=== PATIENT | female | born 1945 | race African-American/Black ===

== ENCOUNTER 2016-08-29 15:49 | Emergency (ER) | payer MEDICARE ==
[~2016-08-29] VITALS: Ht 152.4 cm; Wt 100.0 kg
[~2016-08-29 15:49] MED LIST: ACYCLOVIR400 MG PO; ASPIRIN ADULT L81 MG PO; ATENOLOL50 MG PO; AVAPRO150 MG PO; CARAFATE1 GM PO; CELEBREX100 MG PO; CELEBREX200 MG OR; CEPHALEXIN500 MG PO; CIPROFLOXACN500 MG PO; CLOPIDOGREL75 MG PO; FAMOTIDINE20 M1 PO; FOLIC ACID1 MG PO; GABAPENTIN300 MG PO; HYDROCO/APAP1 T10 PO; HYDROCO/APAP1 TA9; HYDROCO/APAP1 TA9 PO; IMURAN50 MG PO; LIPITOR40 M1 PO; LOPRESSOR 550 MG/TAB PO; LORTAB 10 PO; LORTAB 10-325 M1 TAB PO; LORTAB 1010 MG PO; LORTAB 5 OR; LOSARTAN POT25 MG PO; LOVENOX 3030 MG/0.3 SC; MEDDOSEPAK PO; NITROQUICK0.4 MG SL; NITROSTAT0.4 MG SL; NORCO1 TAB PO; OXYBUTYNIN5 M1 PO; PANTOPRAZOLE SO40 MG PO; PRILOSEC20 MG OR; PRILOSEC20 MG/CAP PO; PROTONIX20 MG PO; RHEUMATREX2.5 M1 PO; TEMAZEPAM15 MG PO; TRAZODONE100 MG OR; TRAZODONE50 MG PO
[2016-08-29 16:19] LABS: HEMATOCRIT 42.9 % (37.0-47.0); HEMOGLOBIN 13.8 g/dl (12.0-16.0); IMMATURE GRANULOCYTES 0.3 % (0.0-1.0); MEAN CELL VOLUME 90.5 fL CALC (80.0-100.0); MEAN CORPUSCULAR HGB 29.1 pG CALC (26.0-32.0); MEAN CORPUSCULAR HGB CONC 32.2 g/L CALC (32.0-36.0); NEUT# 4.33 thou/uL (2.00-7.15); RED BLOOD COUNT 4.74 mill/uL (4.20-5.60); RED CELL DISTRI WIDTH 14.1 % (11.5-15.5)
[2016-08-29 16:20] LABS: URINE BILIRUBIN - DIPSTICK NEGATIVE (NEGATIVE); URINE BLOOD DIPSTICK NEGATIVE (NEGATIVE); URINE CLARITY CLOUDY; URINE COLOR YELLOW; URINE GLUCOSE - DIPSTICK NEGATIVE (NEGATIVE); URINE KETONE NEGATIVE (NEGATIVE); URINE PROTEIN - DIPSTICK NEGATIVE (NEG-TRACE); URINE SPECIFIC GRAVITY 1.015; URINE UROBILINOGEN - DIPSTICK 0.2 E.U./dL (0.2)
[2016-08-29 16:21] LABS: URINE NITRITE - DIPSTICK POSITIVE (Negative)
[2016-08-29 16:22] LABS: URINE LEUK ESTERASE MODERATE (NEGATIVE)
[2016-08-29 16:26] LABS: URINE BACTERIA MANY hpf; URINE RBC 0-2 RBC/hpf (0-5); URINE SQUAMOUS EPITHELIAL CELL MODERATE EPI/hpf (0-FEW); URINE WBC 20-50 WBC/hpf (0-5)
[2016-08-29 16:32] LABS: ALBUMIN 4.6 g/dL (3.2-5.0); ALKALINE PHOSPHATASE 68 u/l (38-126); AMYLASE 112 u/l (30-110); ANION GAP 17 (6-22 (CALC)); BILIRUBIN, TOTAL 0.9 mg/dL (0.0-1.4); BUN 22 mg/dL (8-23); BUN/CREATININE RATIO 13 (12-20 (CALC)); CALCIUM 9.9 mg/dL (8.4-10.2); CARBON DIOXIDE 26 mmol/l (22-30); CHLORIDE 103 mmol/l (95-108); CREATININE 1.7 mg/dL (0.5-1.0); GFR 30 ML/MIN (>=60 (CALC)); GFR FOR AFR.AMER. 36 ML/MIN (>=60 (CALC)); GLUCOSE 129 mg/dL (82-115); LIPASE 183 u/l (23-300); POTASSIUM 4.3 mmol/l (3.5-5.1); SGOT/AST 35 u/l (9-36); SGPT/ALT 23 u/l (11-66); SODIUM 142 mmol/l (137-146); TOTAL PROTEIN 8.6 g/dL (6.3-8.2)
[2016-08-29 16:46] LABS: MYOGLOBIN 123 ng/mL (0 - 62)
[2016-08-29] MEDS ORDERED: ZOFRAN ODT4 MG PO (17:22)
[2016-08-29] MEDS ORDERED: BACTRIM DS1 TAB PO (17:22)
[2016-08-29] MEDS ORDERED: COLACE100 MG PO (17:22)
[2016-08-29] MEDS ORDERED: TRAMADOL HYDROC50 MG PO (17:22)
[2016-08-29 18:26] VITALS: BP 148/67
[2016-09-21] MEDS ORDERED: [UNRECOGNIZED DRUG - CODE] (11:52)
[2016-09-21] MEDS ORDERED: HYDROXYZINE HCL25 M1 PO (11:52)
[2016-09-21] MEDS ORDERED: ARAVA10 MG PO (11:52)
[2016-09-21] MEDS ORDERED: PAROXETINE20 MG PO (11:52)
[2016-09-21] MEDS ORDERED: ACYCLOVIR400 MG PO (11:52)
[2016-09-21] MEDS ORDERED: HYDROXYCHLOR200 MG PO (11:53)
[2016-09-21] MEDS ORDERED: DIOVAN80 MG PO (11:53)
[2016-09-21] MEDS ORDERED: IMURAN50 MG PO (11:53)
[2016-09-21] MEDS ORDERED: PLAVIX75 MG PO (11:54)
[2016-09-21] MEDS ORDERED: CETIRIZINE10 MG PO (11:54)
[2016-09-21] MEDS ORDERED: RHEUMATREX2.5 M1 PO (11:54)
[2016-09-21] MEDS ORDERED: ATENOLOL50 MG PO (11:55)
== END 2016-08-29 19:31 | disposition home or self-care (01) ==
LOC: ED 15:49
PROVIDERS: Emergency Medicine
DX: N10 Acute pyelonephritis (principal); R10.9 Unspecified abdominal pain; R10.13 Epigastric pain; B96.20 Unspecified Escherichia coli [E. coli] as the cause of diseases classified elsewhere; I10 Essential (primary) hypertension; R11.0 Nausea

== ENCOUNTER 2016-10-05 07:19 | Day surgery (SDC) | payer MEDICARE ==
[~2016-10-05 07:19] MED LIST changes: +ARAVA10 MG PO; +BACTRIM DS1 TAB PO; +CETIRIZINE10 MG PO; +COLACE100 MG PO; +DIOVAN80 MG PO; +HYDROXYCHLOR200 MG PO; +HYDROXYZINE HCL25 M1 PO; +PAROXETINE20 MG PO; +PLAVIX75 MG PO; +TRAMADOL HYDROC50 MG PO; +ZOFRAN ODT4 MG PO; +[UNRECOGNIZED DRUG - CODE]
[2016-10-05 10:59] VITALS: BP 116/59
== END 2016-10-05 10:50 | disposition home or self-care (01) ==
LOC: ENDO 07:19 → ORM 08:45 → ENDO 10:50
PROVIDERS: ATTEND Surgery
PROC: 0DB48ZX Excision of Esophagogastric Junction, Via Natural or Artificial Opening Endoscopic, Diagnostic (ICD-10-PCS; principal; 2016-10-05)
PROC: 0DB78ZX Excision of Stomach, Pylorus, Via Natural or Artificial Opening Endoscopic, Diagnostic (ICD-10-PCS; 2016-10-05)
DX: R13.10 Dysphagia, unspecified (principal); K21.9 Gastro-esophageal reflux disease without esophagitis; K44.9 Diaphragmatic hernia without obstruction or gangrene; K20.9 Esophagitis, unspecified; K29.50 Unspecified chronic gastritis without bleeding; R10.13 Epigastric pain; I48.91 Unspecified atrial fibrillation; I12.9 Hypertensive chronic kidney disease with stage 1 through stage 4 chronic kidney disease, or unspecified chronic kidney disease; N18.9 Chronic kidney disease, unspecified; Z85.51 Personal history of malignant neoplasm of bladder; Z85.528 Personal history of other malignant neoplasm of kidney

== ENCOUNTER 2016-11-08 13:36 | Emergency (ER) | payer MEDICARE ==
[~2016-11-08] VITALS: Ht 152.4 cm; Wt 100.0 kg
[2016-11-08] MEDS ORDERED: AMOXICILLIN500 M2 PO (15:22)
[2016-11-08 15:26] VITALS: BP 115/61
[2016-11-08] MEDS ORDERED: MUCINEX600 MG PO (15:33)
== END 2016-11-08 15:39 | disposition home or self-care (01) ==
LOC: ED 13:36
DX: J44.0 Chronic obstructive pulmonary disease with (acute) lower respiratory infection (principal); J20.9 Acute bronchitis, unspecified; I10 Essential (primary) hypertension; F32.9 Major depressive disorder, single episode, unspecified; Z86.73 Personal history of transient ischemic attack (TIA), and cerebral infarction without residual deficits; Z85.51 Personal history of malignant neoplasm of bladder

== ENCOUNTER 2016-11-23 11:17 | Emergency (ER) | payer OTHER, MEDICARE ==
[~2016-11-23] VITALS: Ht 152.4 cm; Wt 84.0 kg
[~2016-11-23 11:17] MED LIST changes: +AMOXICILLIN500 M2 PO; +MUCINEX600 MG PO
[2016-11-23] MEDS ORDERED: FLEXERIL PO (11:46)
[2016-11-23] MEDS ORDERED: LORTAB 5-325 MG1 TAB PO (11:46)
[2016-11-23] MEDS ORDERED: EC-NAPROSYN500 MG PO (11:46)
[2016-11-23 13:01] VITALS: BP 152/86
== END 2016-11-23 13:02 | disposition home or self-care (01) | DRG 552 ==
LOC: ED 11:17
DX: S16.1XXA Strain of muscle, fascia and tendon at neck level, initial encounter (principal); V43.62XA Car passenger injured in collision with other type car in traffic accident, initial encounter; Y92.413 State road as the place of occurrence of the external cause

== ENCOUNTER 2017-06-02 06:01 | Day surgery (SDC) | payer MEDICARE ==
[~2017-06-02] VITALS: Ht 160 cm; Wt 104.3 kg
[~2017-06-02 06:01] MED LIST changes: +EC-NAPROSYN500 MG PO; +FLEXERIL PO; +LORTAB 5-325 MG1 TAB PO; +SUPER B COMP PO
[2017-06-02 08:03] VITALS: BP 140/78
== END 2017-06-02 08:50 | disposition home or self-care (01) ==
LOC: ORM 06:01
PROVIDERS: ATTEND Anesthesiology Pain Medicine
PROC: 3E0T3BZ Introduction of Anesthetic Agent into Peripheral Nerves and Plexi, Percutaneous Approach (ICD-10-PCS; principal; 2017-06-02)
PROC: 3E0T33Z Introduction of Anti-inflammatory into Peripheral Nerves and Plexi, Percutaneous Approach (ICD-10-PCS; 2017-06-02)
PROC: BR161ZZ Fluoroscopy of Lumbar Facet Joint(s) using Low Osmolar Contrast (ICD-10-PCS; 2017-06-02)
PROC: 3E0T33Z Introduction of Anti-inflammatory into Peripheral Nerves and Plexi, Percutaneous Approach (ICD-10-PCS; 2017-06-02)
PROC: 3E0T3BZ Introduction of Anesthetic Agent into Peripheral Nerves and Plexi, Percutaneous Approach (ICD-10-PCS; 2017-06-02)
PROC: 3E0T33Z Introduction of Anti-inflammatory into Peripheral Nerves and Plexi, Percutaneous Approach (ICD-10-PCS; 2017-06-02)
PROC: 3E0T3BZ Introduction of Anesthetic Agent into Peripheral Nerves and Plexi, Percutaneous Approach (ICD-10-PCS; 2017-06-02)
PROC: 3E0T33Z Introduction of Anti-inflammatory into Peripheral Nerves and Plexi, Percutaneous Approach (ICD-10-PCS; 2017-06-02)
PROC: 3E0T3BZ Introduction of Anesthetic Agent into Peripheral Nerves and Plexi, Percutaneous Approach (ICD-10-PCS; 2017-06-02)
DX: M54.5 Low back pain (principal); M12.9 Arthropathy, unspecified; M46.1 Sacroiliitis, not elsewhere classified

== ENCOUNTER 2017-06-16 08:18 | Day surgery (SDC) | payer MEDICARE ==
[~2017-06-16] VITALS: Ht 160 cm; Wt 103.0 kg
[2017-06-16 10:11] VITALS: BP 130/61
== END 2017-06-16 10:45 | disposition home or self-care (01) ==
LOC: ORM 08:18
PROVIDERS: ATTEND Anesthesiology Pain Medicine
PROC: 3E0T33Z Introduction of Anti-inflammatory into Peripheral Nerves and Plexi, Percutaneous Approach (ICD-10-PCS; principal; 2017-06-16)
PROC: 3E0T3BZ Introduction of Anesthetic Agent into Peripheral Nerves and Plexi, Percutaneous Approach (ICD-10-PCS; 2017-06-16)
PROC: BR161ZZ Fluoroscopy of Lumbar Facet Joint(s) using Low Osmolar Contrast (ICD-10-PCS; 2017-06-16)
PROC: 3E0T33Z Introduction of Anti-inflammatory into Peripheral Nerves and Plexi, Percutaneous Approach (ICD-10-PCS; 2017-06-16)
PROC: 3E0T3BZ Introduction of Anesthetic Agent into Peripheral Nerves and Plexi, Percutaneous Approach (ICD-10-PCS; 2017-06-16)
PROC: 3E0T33Z Introduction of Anti-inflammatory into Peripheral Nerves and Plexi, Percutaneous Approach (ICD-10-PCS; 2017-06-16)
PROC: 3E0T3BZ Introduction of Anesthetic Agent into Peripheral Nerves and Plexi, Percutaneous Approach (ICD-10-PCS; 2017-06-16)
DX: M54.5 Low back pain (principal); M12.9 Arthropathy, unspecified; M46.1 Sacroiliitis, not elsewhere classified

== ENCOUNTER 2017-08-11 06:50 | Day surgery (SDC) | payer MEDICARE ==
[~2017-08-11] VITALS: Ht 160 cm; Wt 101.6 kg
[2017-08-11 08:46] VITALS: BP 161/75
== END 2017-08-11 09:25 | disposition home or self-care (01) ==
LOC: ORM 06:50
PROVIDERS: ATTEND Anesthesiology Pain Medicine
PROC: 3E0U33Z Introduction of Anti-inflammatory into Joints, Percutaneous Approach (ICD-10-PCS; principal; 2017-08-11)
PROC: 3E0U3BZ Introduction of Anesthetic Agent into Joints, Percutaneous Approach (ICD-10-PCS; 2017-08-11)
DX: M25.551 Pain in right hip (principal); M76.31 Iliotibial band syndrome, right leg

== ENCOUNTER 2017-10-27 08:54 | Day surgery (SDC) | payer MEDICARE ==
[~2017-10-27] VITALS: Ht 160 cm; Wt 103.0 kg
[~2017-10-27 08:54] MED LIST changes: +NORCO1 TA2 PO; +TYLENOL500 MG PO
[2017-10-27 10:36] VITALS: BP 130/71
[2017-10-27] MEDS ORDERED: NORCO1 TA2 PO ×2 (10:46)
== END 2017-10-27 10:55 | disposition home or self-care (01) ==
LOC: ORM 08:54
PROVIDERS: ATTEND Anesthesiology Pain Medicine
PROC: 3E0T3TZ Introduction of Destructive Agent into Peripheral Nerves and Plexi, Percutaneous Approach (ICD-10-PCS; principal; 2017-10-27)
PROC: BR161ZZ Fluoroscopy of Lumbar Facet Joint(s) using Low Osmolar Contrast (ICD-10-PCS; 2017-10-27)
DX: M54.5 Low back pain (principal)

== ENCOUNTER 2018-01-05 19:45 | Emergency (ER) | payer MEDICARE ==
[~2018-01-05] VITALS: Ht 160 cm; Wt 113.0 kg
[~2018-01-05 19:45] MED LIST changes: +HYDROCODONE/ACE1 TAB PO
[2018-01-05] MEDS ORDERED: PERCOCET 10/31 COMBO PO (21:56)
[2018-01-05 22:38] VITALS: BP 126/68
== END 2018-01-05 22:30 | disposition home or self-care (01) ==
LOC: ED 19:45
DX: M25.551 Pain in right hip (principal); M54.9 Dorsalgia, unspecified; G89.29 Other chronic pain; I10 Essential (primary) hypertension; M19.90 Unspecified osteoarthritis, unspecified site; Z96.641 Presence of right artificial hip joint

== ENCOUNTER 2018-01-30 17:11 | Emergency (ER) | payer MEDICARE ==
[~2018-01-30] VITALS: Ht 160 cm; Wt 109.1 kg
[~2018-01-30 17:11] MED LIST changes: +PERCOCET 10/31 COMBO PO
[2018-01-30 17:41] LABS: URINE BILIRUBIN - DIPSTICK NEGATIVE (NEGATIVE); URINE BLOOD DIPSTICK MODERATE (NEGATIVE); URINE COLOR YELLOW; URINE GLUCOSE - DIPSTICK NEGATIVE (NEGATIVE); URINE KETONE NEGATIVE (NEGATIVE); URINE LEUK ESTERASE NEGATIVE (NEGATIVE); URINE NITRITE - DIPSTICK NEGATIVE (Negative); URINE PH 6.5 (4.5-8.0); URINE PROTEIN - DIPSTICK NEGATIVE (NEG-TRACE); URINE UROBILINOGEN - DIPSTICK 0.2 E.U./dL (0.2)
[2018-01-30 17:42] LABS: HEMATOCRIT 37.5 % (37.0-47.0); IMMATURE GRANULOCYTES 0.2 % (0.0-5.0); MEAN CELL VOLUME 92.1 fL CALC (80.0-100.0); MEAN CORPUSCULAR HGB 29.5 pG CALC (26.0-32.0); NEUT# 4.34 thou/uL (2.00-7.15); RED BLOOD COUNT 4.07 mill/uL (4.20-5.60); RED CELL DISTRI WIDTH 13.7 % (11.5-15.5)
[2018-01-30 18:18] LABS: ALBUMIN 3.7 g/dL (3.2-5.0); ALKALINE PHOSPHATASE 59 u/l (38-126); ANION GAP 11 (6-22 (CALC)); BILIRUBIN, TOTAL 0.4 mg/dL (0.0-1.4); BUN 20 mg/dL (8-23); BUN/CREATININE RATIO 13 (12-20 (CALC)); CARBON DIOXIDE 25 mmol/l (22-30); CHLORIDE 109 mmol/l (95-108); CREATININE 1.6 mg/dL (0.5-1.0); GFR 32 ML/MIN (>=60 (CALC)); GFR FOR AFR.AMER. 38 ML/MIN (>=60 (CALC)); POTASSIUM 4.3 mmol/l (3.5-5.1); SGOT/AST 31 u/l (9-36); SODIUM 141 mmol/l (137-146); TOTAL PROTEIN 6.7 g/dL (6.3-8.2)
[2018-01-30 18:29] LABS: MYOGLOBIN 139 ng/mL (0 - 62)
[2018-01-30 18:41] LABS: BARBITURATES NEGATIVE (NEGATIVE); COCAINE NEGATIVE (NEGATIVE); METHADONE NEGATIVE (NEGATIVE); OXCYCODONE POSITIVE (NEGATIVE); TETRAHYDROCANNABIONOL NEGATIVE (NEGATIVE); TRICYLIC ANTIDEPRESSANTS NEGATIVE (NEGATIVE)
[2018-01-30 18:46] LABS: URINE SQUAMOUS EPITHELIAL CELL FEW EPI/hpf (0-FEW)
[2018-01-30] MEDS ORDERED: LORTAB 1010 MG PO (20:07)
[2018-01-30] MEDS ORDERED: VENTOLIN HFA IN (20:08)
[2018-01-30] MEDS ORDERED: DIOVAN160 MG PO (20:08)
[2018-01-30 21:35] VITALS: BP 134/62
== END 2018-01-30 21:58 | disposition home or self-care (01) ==
LOC: ED 17:11
PROVIDERS: Emergency Medicine
DX: G89.29 Other chronic pain (principal); R52 Pain, unspecified; R41.82 Altered mental status, unspecified; R47.81 Slurred speech

== ENCOUNTER 2018-02-07 15:33 | Emergency (ER) | payer MEDICARE ==
[~2018-02-07] VITALS: Ht 160 cm; Wt 120.0 kg
[~2018-02-07 15:33] MED LIST changes: +DIOVAN160 MG PO; +VENTOLIN HFA IN
[2018-02-07] MEDS ORDERED: MEDDOSEPAK PO (16:08)
[2018-02-07] MEDS ORDERED: DICLOFENAC50 MG PO (16:08)
[2018-02-07 16:55] VITALS: BP 151/72
== END 2018-02-07 16:55 | disposition home or self-care (01) ==
LOC: ED 15:33
DX: G89.29 Other chronic pain (principal); M06.9 Rheumatoid arthritis, unspecified; Z76.0 Encounter for issue of repeat prescription

== ENCOUNTER 2018-02-21 13:44 | Emergency (ER) | payer MEDICARE ==
[~2018-02-21] VITALS: Ht 160 cm; Wt 109.0 kg
[~2018-02-21 13:44] MED LIST changes: +DICLOFENAC50 MG PO; +PERCOCET1 TA4 PO
[2018-02-21 15:27] LABS: URINE BILIRUBIN - DIPSTICK NEGATIVE (NEGATIVE); URINE BLOOD DIPSTICK NEGATIVE (NEGATIVE); URINE COLOR YELLOW; URINE GLUCOSE - DIPSTICK NEGATIVE (NEGATIVE); URINE KETONE TRACE mg/dL (NEGATIVE); URINE LEUK ESTERASE NEGATIVE (NEGATIVE); URINE NITRITE - DIPSTICK NEGATIVE (Negative); URINE PH 7.5 (4.5-8.0); URINE PROTEIN - DIPSTICK NEGATIVE (NEG-TRACE); URINE SPECIFIC GRAVITY 1.015; URINE UROBILINOGEN - DIPSTICK 0.2 E.U./dL (0.2)
[2018-02-21 15:28] LABS: HEMATOCRIT 39.3 % (37.0-47.0); HEMOGLOBIN 12.5 g/dl (12.0-16.0); IMMATURE GRANULOCYTES 0.3 % (0.0-5.0); MEAN CELL VOLUME 91.8 fL CALC (80.0-100.0); MEAN CORPUSCULAR HGB 29.2 pG CALC (26.0-32.0); MEAN CORPUSCULAR HGB CONC 31.8 g/L CALC (32.0-36.0); NEUT# 5.8 thou/uL (2.00-7.15); RED BLOOD COUNT 4.28 mill/uL (4.20-5.60)
[2018-02-21 15:43] LABS: ALBUMIN 4.2 g/dL (3.2-5.0); BILIRUBIN, TOTAL 0.6 mg/dL (0.0-1.4); CREATININE 1.6 mg/dL (0.5-1.0); POTASSIUM 5.6 mmol/l (3.5-5.1); TOTAL PROTEIN 7.5 g/dL (6.3-8.2)
[2018-02-21] MEDS ORDERED: ONDANSETRON4 MG PO (17:25)
[2018-02-21 17:35] LABS: CREATININE 1.6 mg/dL (0.5-1.0); POTASSIUM 4.7 mmol/l (3.5-5.1)
[2018-02-21 17:53] VITALS: BP 153/81
== END 2018-02-21 18:02 | disposition home or self-care (01) ==
LOC: ED 13:44
PROVIDERS: Family Medicine
DX: K52.9 Noninfective gastroenteritis and colitis, unspecified (principal); E87.5 Hyperkalemia; I10 Essential (primary) hypertension; J44.9 Chronic obstructive pulmonary disease, unspecified; M06.9 Rheumatoid arthritis, unspecified; M19.90 Unspecified osteoarthritis, unspecified site

== ENCOUNTER 2018-09-02 12:13 | Emergency (ER) | payer MEDICARE ==
[~2018-09-02] VITALS: Ht 160 cm; Wt 80.0 kg
[~2018-09-02 12:13] MED LIST changes: +IPRATROPIU0.5 MG/3 M IN; +LIPITOR20 M1 PO; +ONDANSETRON4 MG PO; +PAROXETINE10 MG PO; +TELMISARTAN40 MG PO; +TUSSIN DM PO
[2018-09-02 13:38] LABS: URINE BILIRUBIN - DIPSTICK NEGATIVE (NEGATIVE); URINE BLOOD DIPSTICK NEGATIVE (NEGATIVE); URINE COLOR YELLOW; URINE GLUCOSE - DIPSTICK NEGATIVE (NEGATIVE); URINE KETONE NEGATIVE (NEGATIVE); URINE LEUK ESTERASE NEGATIVE (NEGATIVE); URINE NITRITE - DIPSTICK NEGATIVE (Negative); URINE PROTEIN - DIPSTICK NEGATIVE (NEG-TRACE)
[2018-09-02] MEDS ORDERED: TAM75CAP PO (15:08)
[2018-09-02 15:20] VITALS: BP 138/61
== END 2018-09-02 15:20 | disposition home or self-care (01) ==
LOC: ED 12:13
DX: J10.1 Influenza due to other identified influenza virus with other respiratory manifestations (principal); I10 Essential (primary) hypertension; J44.9 Chronic obstructive pulmonary disease, unspecified

== ENCOUNTER 2018-11-01 10:41 | Observation (INO) | payer MEDICARE ==
[~2018-11-01] VITALS: Ht 160 cm; Wt 98.6 kg
[~2018-11-01 10:41] MED LIST changes: +TAM75CAP PO
--- NOTE | 2018-11-01 10:41 | NUR ---
ESTRELLA ARRIVED VIA EMS. EMS STSTES NURSE ARRIVED TODAY TO FIND PATIENT BEING LETHARGIC AND SLURING OF WORDS. PATIENTS LAST KNOW WELL 2 DAYS PRIOR. PATIENT STATES JUST SLEEPY AND WANTS TO GO TO SLEEP. PATIENT ORIENTED TO PERSON, PLACE AND TIME. PATIENT HAS MILD DYSARTHRIA BUT UNSURE IF PATIENTS BASELINE DUE TO NOT HAVING DENTURES IN. PATIENTLETHARGIC BUT EASILY AROUSED TO VOICE COMMAND. JCARLOS HAS NO DRIFTS, ATAXIA OR VISUAL FIELD DEFICITS. SENSATION INTACT AND NO NEGLECT AT THIS TIME. MD NOTIFIED OF PATIENT STATUS
--- NOTE | 2018-11-01 12:00 | NUR ---
PT RESTING ON STRECTHER REMAINS DROWSY BUT REPSONDS APPROPRIATELY TO QUESTIONS ASKED. CALL RAMOS WITHIN REACH, FAMILY MEMBERS AT BEDSIDE
[2018-11-01 12:03] LABS: HEMATOCRIT 36.3 % (37.0-47.0); HEMOGLOBIN 11.2 g/dl (12.0-16.0); IMMATURE GRANULOCYTES 0.3 % (0.0-5.0); MEAN CORPUSCULAR HGB 27.5 pG CALC (26.0-32.0); MEAN CORPUSCULAR HGB CONC 30.9 g/L CALC (32.0-36.0); NEUT# 4.18 thou/uL (2.00-7.15); RED BLOOD COUNT 4.08 mill/uL (4.20-5.60); RED CELL DISTRI WIDTH 14.6 % (11.5-15.5)
[2018-11-01 12:20] LABS: ALBUMIN 3.9 g/dL (3.2-5.0); ALKALINE PHOSPHATASE 96 u/l (38-126); ANION GAP 13 (6-22 (CALC)); BILIRUBIN, TOTAL 0.3 mg/dL (0.0-1.4); BUN 23 mg/dL (8-23); BUN/CREATININE RATIO 16 (12-20 (CALC)); CARBON DIOXIDE 25 mmol/l (22-30); CHLORIDE 106 mmol/l (95-108); CREATININE 1.5 mg/dL (0.5-1.0); GFR 34 ML/MIN (>=60 (CALC)); GFR FOR AFR.AMER. 41 ML/MIN (>=60 (CALC)); POTASSIUM 4.7 mmol/l (3.5-5.1); SGOT/AST 25 u/l (9-36); SODIUM 139 mmol/l (137-146); TOTAL PROTEIN 7.6 g/dL (6.3-8.2)
[2018-11-01 12:28] LABS: MYOGLOBIN 51 ng/mL (0 - 62)
--- NOTE | 2018-11-01 13:09 | NUR ---
B/P 144/94
--- NOTE | 2018-11-01 14:15 | NUR ---
PT SITTIG UP ON STRETCHER, OFFERS NO COMPLAINTS ALL RACHEL QUINTANILLA,A DONOHUE OF PEDNING ADMISSION WILL CONTINUE TO MONITOR.
--- NOTE | 2018-11-01 15:15 | NUR ---
PT RESTING ALTERNATES BETWEEN SITTING UP AND LYING DOWN ON STRETCHER, NO NEW COMPLAINTS OFFEREED, CALL RAMOS WITHIN REACH
[2018-11-01] MEDS ORDERED: LIPITOR40 M1 PO (16:01)
[2018-11-01] MEDS ORDERED: IRBESARTAN150 M1 PO (16:01)
[2018-11-01] MEDS ORDERED: PRIMIDONE50 MG PO (16:01)
[2018-11-01] MEDS ORDERED: GABAPENTIN300 M2 PO (16:02)
[2018-11-01] MEDS ORDERED: LEVOTHYROXIN50 MCG PO (16:02)
[2018-11-01] MEDS ORDERED: OXYCODONE15 MG PO (16:03)
[2018-11-01] MEDS ORDERED: PROTONIX40 M2 PO (16:03)
[2018-11-01] MEDS ORDERED: LASIX40 MG PO (16:03)
[2018-11-01] MEDS ORDERED: TELMISARTAN40 MG PO (16:04)
--- NOTE | 2018-11-01 16:10 | NUR ---
REPORT CALLED TO QI TURCIOS ON MED SURG
--- NOTE | 2018-11-01 16:18 | NUR ---
PT TRANSPORTED TO MED SURG VIA WHEELCHAIR ON TELEMETRY. ALL BELONGINGS SENT WITH PT
[2018-11-01 16:42] VITALS: BP 135/80
--- NOTE | 2018-11-01 17:06 | NUR ---
PT HAD COME FROM ER VIA WHEELCHAIR. ASSESSMENT DONE. PT IS A&O X3. TELE IN PLACE READING SR 92. PT STATED SHE IS FEELING BETTER NOW. PT STATED THAT SOMETIMES SHE HAS SOME ITCHING IN HER LEGS,ARMS, AND BACK BUT THAT IT IS NOT NEW. SKIN INTACT. FAMILY IN ROOM. SAFETY PRECAUTIONS REINFORCED AND CALL LIGHT IN REACH.
[2018-11-01 19:20] VITALS: BP 147/72
--- NOTE | 2018-11-01 19:30 | NUR ---
PATIENT SITTING UP IN RECLINER AT THIS TIME WITH FAMILY AT BEDSIDE VISITING. PATIENT IS AWAKE ALERT AND ORIENTEDX3. PATIENT STATES THAT SHE DID HAVE SOME RELLIEF FROM EARLIER PAINMEDS. TELE MONITOR IN PLACE. SALINE LOCK TO LEFT WRIST INTACT AND APPEARS HEALTHY AT THIS TIME. TREMORS NOTED TO BUE. SAFETY PRECAUTIONS REINFORCED. CALL LIGHT IN REACH. WILL CONT TO MONITOR.
--- NOTE | 2018-11-01 21:00 | NUR ---
PATIENT RESTING IN BED AT THIS TIME-HS MEDS GIVEN. IVF NS HUNG VIA LEFT WRIST SITE AT 75CC/HR. BED ALARM IN PLACE FOR PATIENT SAFETY. CALL LIGHT IN REACH. WILL CONT TO MONITOR.
--- NOTE | 2018-11-01 23:00 | NUR ---
PATIENT POSITIONED ON LEFT SIDE AND APPEARS SLEEPING. TELE MONITOR IN PLACE. IV SITE TO LEFT WRIST INTACT WITH IVF PATENT AND INFUSING AT 75CC/HR. CALL LIGHT IN REACH.WILL CONT TO MONITOR.
[2018-11-02 00:15] VITALS: BP 107/56
[2018-11-02 03:24] VITALS: BP 106/67
--- NOTE | 2018-11-02 04:00 | NUR ---
PATIENT APPEARS SLEEPING AT THIS TIME WITH EYES CLOSED POSITIONED ON RIGHT SIDE. TELE MONITOR IN PLACE. IVF PATENT AND INFUSING AT 75CC/HR VIA LEFT WRIST SITE. CALL LIGHT IN REACH. WILL CONT TO MONITOR.
[2018-11-02 05:12] LABS: HEMATOCRIT 35.1 % (37.0-47.0); HEMOGLOBIN 10.9 g/dl (12.0-16.0); MEAN CELL VOLUME 88.6 fL CALC (80.0-100.0); MEAN CORPUSCULAR HGB 27.5 pG CALC (26.0-32.0); MEAN CORPUSCULAR HGB CONC 31.1 g/L CALC (32.0-36.0); RED BLOOD COUNT 3.96 mill/uL (4.20-5.60); RED CELL DISTRI WIDTH 14.6 % (11.5-15.5)
[2018-11-02 05:26] LABS: CREATININE 1.4 mg/dL (0.5-1.0); POTASSIUM 4.7 mmol/l (3.5-5.1)
--- NOTE | 2018-11-02 06:39 | NUR ---
PATIENT RESTING IN BED-MEDICATED FOR C/O HIP AND BACK PAIN WITH OXYCODONE 15MG PO ORDERED FOR PAIN. TELE MONITOR IN PLACE. IVF PATENT AND INFUSING AT 75CC/HR. SITE REMAINS HEALTHY. CALL LIGHT IN REACH. WILL CONT TO MONITOR.
[2018-11-02 08:15] VITALS: BP 106/63
--- NOTE | 2018-11-02 08:23 | NUR ---
PT IS A&OX3 . ASSESSMENT DONE. TELE IN PLACE. PT STATED PAIN IN HIP 09/24. MEDICATED PT WITH TYLENOL. IVF INFUSING WELL. PT STATED SHE FEELS TIRED. PT DENIES ANY OTHER NEEDS AT THIS TIME. CALL LIGHT IN REACH.
[2018-11-02 11:17] VITALS: BP 134/63
--- NOTE | 2018-11-02 12:35 | NUR ---
PT IS VISITING IN ROOM WITH DAUGHTER. PT DENIES PAIN AT THIS TIME. PT STATED SHE WANTS TO TAKE A SHOWER. LATER. CALL LIGHT IN REACH.
[2018-11-02 14:13] LABS: URINE BILIRUBIN - DIPSTICK NEGATIVE (NEGATIVE); URINE BLOOD DIPSTICK NEGATIVE (NEGATIVE); URINE COLOR YELLOW; URINE GLUCOSE - DIPSTICK NEGATIVE (NEGATIVE); URINE KETONE NEGATIVE (NEGATIVE); URINE LEUK ESTERASE NEGATIVE (NEGATIVE); URINE NITRITE - DIPSTICK NEGATIVE (Negative); URINE PH 5.5 (4.5-8.0); URINE PROTEIN - DIPSTICK NEGATIVE (NEG-TRACE); URINE SPECIFIC GRAVITY 1.015; URINE UROBILINOGEN - DIPSTICK 0.2 E.U./dL (0.2)
[2018-11-02 14:16] LABS: BARBITURATES POSITIVE (NEGATIVE); COCAINE NEGATIVE (NEGATIVE); METHADONE NEGATIVE (NEGATIVE); TETRAHYDROCANNABIONOL NEGATIVE (NEGATIVE); TRICYLIC ANTIDEPRESSANTS NEGATIVE (NEGATIVE)
[2018-11-02 14:17] LABS: OXCYCODONE POSITIVE (NEGATIVE)
--- NOTE | 2018-11-02 15:30 | NUR ---
NOTIFIED DR. MICHAEL Re:PT REFUSED HER MRI AND THAT UNABLE TO START IV. STATED OK.
[2018-11-02 15:49] VITALS: BP 135/84
--- NOTE | 2018-11-02 16:09 | NUR ---
PT IS RESTING IN BED WITH NO S/S OF DISTRESS. PT DENIES PAIN AT THIS TIME OR NEEDS. CALL LIGHT IN REACH.
[2018-11-02 20:10] VITALS: BP 122/73
--- NOTE | 2018-11-02 21:15 | NUR ---
NEW IV SITE ACCESSED TO LW. PT TOLERATED WELL.
--- NOTE | 2018-11-02 22:11 | NUR ---
PT MEDICATED ORDERS PROVIDE AND PT ASSESSMENT COMPLETE AT THIS TIME. VISITOR AT BEDSIDE. PT REMINDED TO CALL PRIOR TO AMBULATING, REMINDED OF CALL LIGHT, VOICED UNDERSTANDING AT THIS TIME.
[2018-11-03 00:32] VITALS: BP 132/73
[2018-11-03 04:14] VITALS: BP 132/79
--- NOTE | 2018-11-03 04:43 | NUR ---
PT MEDICATED FOR PAIN 9/10 ON PAIN SCALE. PAIN REPORTED IN HIPS AND BACK. PT DENIES ANY OTHER NEEDS AT THIS TIME. CALL LIGHT AT SIDE, LIGHTS OUT, BUT TV IS ON LOW.
[2018-11-03 07:46] VITALS: BP 118/74
--- NOTE | 2018-11-03 07:50 | NUR ---
PT AWAKE RESTING IN RECLINER EATING BREAKFAST. RESP EVEN AND UNLABORED. PT IS ALERT AND ORIENTED X3. HAND GRASP MODERATE AND EQUAL. MOVES ALL EXT. PUPILS ARE EQUAL AND REACTIVE. LUNGS REVEAL DIMINISHED BREATH SOUNDS IN LOWER LOBES. PT DOES HAVE A DRY NONPRODUCTIVE OCC COUGH. ABD SOFT WITH BOWEL SOUNDS PRESENT. NO LOWER EXT EDEMA NOTED. PEDAL PULSES PALPATED BILAT. FEET ARE ELEVATED IN RECLINER. IV SITE PATENT IN LEFT HAND NO REDNESS OR SWELLING AT SITE. IVF NSS AT 75CC/HR. TELE INTACT. PT OFFERS NO COMPLAINTS AT THIS TIME. NEURO ASSESSMENT UNREMARKABLE. FREQUENT ROUNDS MADE. CALL RAMOS WITHIN REACH.
--- NOTE | 2018-11-03 10:46 | NUR ---
PT RESTING IN RECLINER. FAMILY AT BEDSIDE. OFFERS NO COMPLAINTS. CALL RAMOS WITHIN REACH.
[2018-11-03 10:55] VITALS: BP 120/68
--- NOTE | 2018-11-03 12:35 | NUR ---
PT RESTING IN RECLINER WITH LEGS ELEVATED. IV SITE PATENT. RESP EVEN AND UNLABORED. TELE SR HR 84. OFFERS NO COMPLAINTS. NEURO ASSESSMENT UNCHANGED. CALL RAMOS WITHIN REACH.
--- NOTE | 2018-11-03 12:38 | NUR ---
DR MICHAEL IN TO SPEAK WITH PT. INFORMED OF DISCHARGE INSTRUCTIONS TO CONTINUE ASA AND FOLLOW UP WITH NEUROLOGIST. PT HAS NO QUESTIONS. RESP EVEN AND UNLABORED. OFFERS NO COMPLAINTS. DR MICHAEL TO DO DISCHARGE ORDERS. FAMILY AT BEDSIDE.
[2018-11-03] MEDS ORDERED: ASPIRIN CHEWABL81 MG PO (12:40)
--- NOTE | 2018-11-03 13:00 | NUR ---
IV SITE D/HERMELINDA WITH CATHETER INTACT.
--- NOTE | 2018-11-03 13:05 | NUR ---
REVIEWED ALL DISCHARGE INSTRUCTIONS WITH PT INCLUDING FOLLOW UP AND APPT AND HOME MEDS. PT AND PTS FAMILY HAVE NO QUESTIONS REGARDING D/C INSTRUCTIONS.
--- NOTE | 2018-11-03 13:29 | NUR ---
PT DISCHARGED VIA WHEELCHAIR WITH FAMILY AND HER PERSONAL BELONGINGS IN STABLE CONDITION.
== END 2018-11-03 13:29 | disposition home or self-care (01) ==
LOC: ED 10:41 → ED-I 13:20 → ED 13:36 → MS2 13:37
PROVIDERS: Family Medicine; ADMIT Internal Medicine; ATTEND Internal Medicine
DX: G45.9 Transient cerebral ischemic attack, unspecified (principal); J44.9 Chronic obstructive pulmonary disease, unspecified; I12.9 Hypertensive chronic kidney disease with stage 1 through stage 4 chronic kidney disease, or unspecified chronic kidney disease; N18.9 Chronic kidney disease, unspecified; M54.16 Radiculopathy, lumbar region; G89.4 Chronic pain syndrome; R25.1 Tremor, unspecified; M19.90 Unspecified osteoarthritis, unspecified site; K21.9 Gastro-esophageal reflux disease without esophagitis; D64.9 Anemia, unspecified; F41.9 Anxiety disorder, unspecified; F40.240 Claustrophobia; Z86.73 Personal history of transient ischemic attack (TIA), and cerebral infarction without residual deficits

== ENCOUNTER 2018-12-22 12:13 | Observation (INO) | payer MEDICARE ==
[~2018-12-22] VITALS: Ht 154.9 cm; Wt 101.0 kg
[~2018-12-22 12:13] MED LIST changes: +ASPIRIN CHEWABL81 MG PO; +IRBESARTAN150 M1 PO; +LASIX40 MG PO; +LEVOTHYROXIN75 MC1 PO; +NEURONTIN400 MG PO; +OXYCODONE15 MG PO; +PRIMIDONE50 MG PO; +PROTONIX40 M2 PO
[2018-12-22 13:18] LABS: URINE BILIRUBIN - DIPSTICK NEGATIVE (NEGATIVE); URINE BLOOD DIPSTICK NEGATIVE (NEGATIVE); URINE COLOR YELLOW; URINE GLUCOSE - DIPSTICK NEGATIVE (NEGATIVE); URINE KETONE NEGATIVE (NEGATIVE); URINE LEUK ESTERASE NEGATIVE (NEGATIVE); URINE NITRITE - DIPSTICK NEGATIVE (Negative); URINE PROTEIN - DIPSTICK NEGATIVE (NEG-TRACE); URINE UROBILINOGEN - DIPSTICK 0.2 E.U./dL (0.2)
[2018-12-22 13:41] LABS: HEMATOCRIT 35.7 % (37.0-47.0); HEMOGLOBIN 11.1 g/dl (12.0-16.0); IMMATURE GRANULOCYTES 0.2 % (0.0-5.0); MEAN CELL VOLUME 90.2 fL CALC (80.0-100.0); MEAN CORPUSCULAR HGB CONC 31.1 g/L CALC (32.0-36.0); NEUT# 5.22 thou/uL (2.00-7.15); RED BLOOD COUNT 3.96 mill/uL (4.20-5.60); RED CELL DISTRI WIDTH 15.5 % (11.5-15.5)
[2018-12-22 14:45] LABS: ALKALINE PHOSPHATASE 100 u/l (38-126); ANION GAP 11 (6-22 (CALC)); BILIRUBIN, TOTAL 0.3 mg/dL (0.0-1.4); BUN 20 mg/dL (8-23); BUN/CREATININE RATIO 11 (12-20 (CALC)); CARBON DIOXIDE 26 mmol/l (22-30); CHLORIDE 106 mmol/l (95-108); CREATININE 1.8 mg/dL (0.5-1.0); GFR 28 ML/MIN (>=60 (CALC)); GFR FOR AFR.AMER. 33 ML/MIN (>=60 (CALC)); LIPASE 95 u/l (23-300); POTASSIUM 4.5 mmol/l (3.5-5.1); SGOT/AST 25 u/l (9-36); SODIUM 139 mmol/l (137-146); TOTAL PROTEIN 7.6 g/dL (6.3-8.2)
[2018-12-22 16:06] LABS: CHOLESTEROL HDL RATIO 2.7 (<4.4 (CALC))
[2018-12-22 16:45] VITALS: BP 164/95
[2018-12-22] MEDS ORDERED: INDERAL 20MG TA20 MG PO (17:03)
[2018-12-22] MEDS ORDERED: ATROVENT H17 MCG/ACT PO (17:04)
[2018-12-22] MEDS ORDERED: IPRATROPIUM BR0.02 % PO (17:05)
[2018-12-22 19:10] VITALS: BP 134/73
[2018-12-22 23:45] VITALS: BP 137/77
[2018-12-23 04:24] VITALS: BP 138/74
[2018-12-23 06:18] LABS: HEMATOCRIT 33.4 % (37.0-47.0); HEMOGLOBIN 10.5 g/dl (12.0-16.0); IMMATURE GRANULOCYTES 0.4 % (0.0-5.0); MEAN CELL VOLUME 89.8 fL CALC (80.0-100.0); MEAN CORPUSCULAR HGB 28.2 pG CALC (26.0-32.0); MEAN CORPUSCULAR HGB CONC 31.4 g/L CALC (32.0-36.0); NEUT# 8.32 thou/uL (2.00-7.15); RED BLOOD COUNT 3.72 mill/uL (4.20-5.60); RED CELL DISTRI WIDTH 14.6 % (11.5-15.5)
[2018-12-23 07:00] LABS: CREATININE 1.7 mg/dL (0.5-1.0); MAGNESIUM 2.1 mg/dL (1.6-2.3)
[2018-12-23 07:04] LABS: POTASSIUM 5.4 mmol/l (3.5-5.1)
[2018-12-23 08:10] VITALS: BP 131/60
[2018-12-23 10:33] VITALS: BP 162/77
[2018-12-23 15:12] VITALS: BP 176/86
[2018-12-23 19:06] VITALS: BP 153/81
[2018-12-24] VITALS (7 sets, daily range): BP systolic 142–174; BP diastolic 70–84
[2018-12-24 05:52] LABS: HEMATOCRIT 33.8 % (37.0-47.0); HEMOGLOBIN 10.5 g/dl (12.0-16.0); IMMATURE GRANULOCYTES 0.7 % (0.0-5.0); MEAN CELL VOLUME 90.1 fL CALC (80.0-100.0); MEAN CORPUSCULAR HGB CONC 31.1 g/L CALC (32.0-36.0); NEUT# 12.06 thou/uL (2.00-7.15); RED BLOOD COUNT 3.75 mill/uL (4.20-5.60)
[2018-12-24 06:15] LABS: CREATININE 1.5 mg/dL (0.5-1.0); MAGNESIUM 2.1 mg/dL (1.6-2.3)
[2018-12-24 06:19] LABS: POTASSIUM 5.8 mmol/l (3.5-5.1)
[2018-12-25 05:05] VITALS: BP 132/79
[2018-12-25 06:17] LABS: ALBUMIN 3.9 g/dL (3.2-5.0); BILIRUBIN, TOTAL 0.2 mg/dL (0.0-1.4); CREATININE 1.6 mg/dL (0.5-1.0); POTASSIUM 4.5 mmol/l (3.5-5.1); TOTAL PROTEIN 7.3 g/dL (6.3-8.2)
[2018-12-25 07:35] VITALS: BP 137/98
[2018-12-25 11:58] VITALS: BP 142/86
[2018-12-25] MEDS ORDERED: ZPAK PO (14:32)
[2018-12-25] MEDS ORDERED: MEDDOSEPAK PO (14:32)
[2018-12-25 14:53] VITALS: BP 142/86
== END 2018-12-25 18:18 | disposition home or self-care (01) ==
LOC: ED 12:13 → ED-I 12:52 → ED 12:52 → ED-I 15:07 → ED 15:24 → MS2 15:25
PROVIDERS: Family Medicine; Nurse Practitioner Family; ADMIT Internal Medicine; ATTEND Internal Medicine
DX: R07.89 Other chest pain (principal); J44.1 Chronic obstructive pulmonary disease with (acute) exacerbation; Z68.41 Body mass index [BMI] 40.0-44.9, adult; E66.01 Morbid (severe) obesity due to excess calories; I12.9 Hypertensive chronic kidney disease with stage 1 through stage 4 chronic kidney disease, or unspecified chronic kidney disease; N18.3 Chronic kidney disease, stage 3 (moderate); K21.9 Gastro-esophageal reflux disease without esophagitis; D63.1 Anemia in chronic kidney disease; M06.9 Rheumatoid arthritis, unspecified; G47.33 Obstructive sleep apnea (adult) (pediatric); N20.0 Calculus of kidney; E03.9 Hypothyroidism, unspecified; I73.9 Peripheral vascular disease, unspecified; E87.5 Hyperkalemia; K59.00 Constipation, unspecified; G89.4 Chronic pain syndrome; Z79.891 Long term (current) use of opiate analgesic; Z86.73 Personal history of transient ischemic attack (TIA), and cerebral infarction without residual deficits; Z87.442 Personal history of urinary calculi
CPT/HCPCS: G0378; J1650

== ENCOUNTER 2019-01-18 14:32 | Emergency (ER) | payer MEDICARE ==
[~2019-01-18] VITALS: Ht 154.9 cm; Wt 100.0 kg
[~2019-01-18 14:32] MED LIST changes: +ATROVENT H17 MCG/ACT PO; +INDERAL 20MG TA20 MG PO; +IPRATROPIUM BR0.02 % PO; +ZPAK PO
[2019-01-18 16:26] LABS: HEMATOCRIT 37.1 % (37.0-47.0); HEMOGLOBIN 11.6 g/dl (12.0-16.0); IMMATURE GRANULOCYTES 0.2 % (0.0-5.0); MEAN CORPUSCULAR HGB 27.8 pG CALC (26.0-32.0); MEAN CORPUSCULAR HGB CONC 31.3 g/L CALC (32.0-36.0); NEUT# 2.89 thou/uL (2.00-7.15); RED BLOOD COUNT 4.17 mill/uL (4.20-5.60); RED CELL DISTRI WIDTH 13.9 % (11.5-15.5)
[2019-01-18 16:34] LABS: URINE BILIRUBIN - DIPSTICK NEGATIVE (NEGATIVE); URINE BLOOD DIPSTICK NEGATIVE (NEGATIVE); URINE COLOR YELLOW; URINE GLUCOSE - DIPSTICK NEGATIVE (NEGATIVE); URINE KETONE NEGATIVE (NEGATIVE); URINE LEUK ESTERASE NEGATIVE (NEGATIVE); URINE NITRITE - DIPSTICK NEGATIVE (Negative); URINE PROTEIN - DIPSTICK NEGATIVE (NEG-TRACE); URINE UROBILINOGEN - DIPSTICK 0.2 E.U./dL (0.2)
[2019-01-18 16:46] LABS: ALBUMIN 4.2 g/dL (3.2-5.0); ALKALINE PHOSPHATASE 94 u/l (38-126); ANION GAP 14 (6-22 (CALC)); BUN 16 mg/dL (8-23); BUN/CREATININE RATIO 12 (12-20 (CALC)); CARBON DIOXIDE 26 mmol/l (22-30); CHLORIDE 104 mmol/l (95-108); CREATININE 1.3 mg/dL (0.5-1.0); GFR 40 ML/MIN (>=60 (CALC)); GFR FOR AFR.AMER. 49 ML/MIN (>=60 (CALC)); POTASSIUM 4.1 mmol/l (3.5-5.1); SGOT/AST 26 u/l (9-36); SODIUM 139 mmol/l (137-146)
[2019-01-18 16:54] LABS: BILIRUBIN, TOTAL 0.5 mg/dL (0.0-1.4)
[2019-01-18 16:56] LABS: MYOGLOBIN 87 ng/mL (0 - 62)
[2019-01-18 18:40] LABS: AMYLASE 66 u/l (30-110); LIPASE 103 u/l (23-300)
[2019-01-18] MEDS ORDERED: LEVAQUIN500 MG PO (19:45)
[2019-01-18] MEDS ORDERED: ONDANSETRON4 MG PO (19:45)
[2019-01-18] MEDS ORDERED: ROBITUSSIN AC10 ML PO (19:45)
[2019-01-18 20:25] VITALS: BP 173/78
== END 2019-01-18 20:22 | disposition home or self-care (01) ==
LOC: ED 14:32
PROVIDERS: Emergency Medicine
DX: K29.70 Gastritis, unspecified, without bleeding (principal); J06.9 Acute upper respiratory infection, unspecified; I10 Essential (primary) hypertension; J44.9 Chronic obstructive pulmonary disease, unspecified; Z86.73 Personal history of transient ischemic attack (TIA), and cerebral infarction without residual deficits
CPT/HCPCS: S0164

== ENCOUNTER 2019-01-19 14:53 | Emergency (ER) | payer MEDICARE ==
[~2019-01-19] VITALS: Ht 154.9 cm; Wt 100.0 kg
[~2019-01-19 14:53] MED LIST changes: +LEVAQUIN500 MG PO; +ROBITUSSIN AC10 ML PO
[2019-01-19 15:53] LABS: URINE BILIRUBIN - DIPSTICK NEGATIVE (NEGATIVE); URINE BLOOD DIPSTICK NEGATIVE (NEGATIVE); URINE COLOR YELLOW; URINE GLUCOSE - DIPSTICK NEGATIVE (NEGATIVE); URINE KETONE NEGATIVE (NEGATIVE); URINE LEUK ESTERASE NEGATIVE (NEGATIVE); URINE NITRITE - DIPSTICK NEGATIVE (Negative); URINE PROTEIN - DIPSTICK NEGATIVE (NEG-TRACE); URINE SPECIFIC GRAVITY 1.015; URINE UROBILINOGEN - DIPSTICK 0.2 E.U./dL (0.2)
[2019-01-19 16:10] LABS: HEMATOCRIT 36.8 % (37.0-47.0); HEMOGLOBIN 11.7 g/dl (12.0-16.0); IMMATURE GRANULOCYTES 0.3 % (0.0-5.0); MEAN CELL VOLUME 88.5 fL CALC (80.0-100.0); MEAN CORPUSCULAR HGB 28.1 pG CALC (26.0-32.0); MEAN CORPUSCULAR HGB CONC 31.8 g/L CALC (32.0-36.0); NEUT# 3.77 thou/uL (2.00-7.15); RED BLOOD COUNT 4.16 mill/uL (4.20-5.60); RED CELL DISTRI WIDTH 13.8 % (11.5-15.5)
[2019-01-19 16:27] LABS: ALBUMIN 4.4 g/dL (3.2-5.0); BILIRUBIN, TOTAL 0.5 mg/dL (0.0-1.4); CREATININE 1.4 mg/dL (0.5-1.0); POTASSIUM 4.4 mmol/l (3.5-5.1); TOTAL PROTEIN 8.2 g/dL (6.3-8.2)
[2019-01-19 17:11] VITALS: BP 160/87
== END 2019-01-19 17:11 | disposition home or self-care (01) ==
LOC: ED 14:53
PROVIDERS: Family Medicine
DX: K29.70 Gastritis, unspecified, without bleeding (principal); K52.9 Noninfective gastroenteritis and colitis, unspecified; I10 Essential (primary) hypertension; J44.9 Chronic obstructive pulmonary disease, unspecified; Z86.73 Personal history of transient ischemic attack (TIA), and cerebral infarction without residual deficits

== ENCOUNTER 2019-07-06 13:14 | Inpatient (IN) | payer MEDICARE ==
[2019-07-06 14:58] LABS: HEMATOCRIT 37.3 % (37.0-47.0); HEMOGLOBIN 11.3 g/dl (12.0-16.0); IMMATURE GRANULOCYTES 0.5 % (0.0-5.0); MEAN CORPUSCULAR HGB 29.3 pG CALC (26.0-32.0); MEAN CORPUSCULAR HGB CONC 30.3 g/dL CAL (32.0-36.0); NEUT# 7.17 thou/uL (2.00-7.15); RED BLOOD COUNT 3.86 mill/uL (4.20-5.60); RED CELL DISTRI WIDTH 14.3 % (11.5-15.5)
[2019-07-06 14:59] LABS: URINE BILIRUBIN - DIPSTICK NEGATIVE (NEGATIVE); URINE BLOOD DIPSTICK NEGATIVE (NEGATIVE); URINE COLOR YELLOW; URINE GLUCOSE - DIPSTICK NEGATIVE (NEGATIVE); URINE KETONE NEGATIVE (NEGATIVE); URINE LEUK ESTERASE NEGATIVE (NEGATIVE); URINE NITRITE - DIPSTICK NEGATIVE (Negative); URINE PROTEIN - DIPSTICK NEGATIVE (NEG-TRACE); URINE UROBILINOGEN - DIPSTICK 0.2 E.U./dL (0.2)
[2019-07-06 15:00] LABS: MEAN CELL VOLUME 96.6 fL CALC (80.0-100.0)
[2019-07-06 16:11] LABS: ALBUMIN 3.7 g/dL (3.2-5.0); ALKALINE PHOSPHATASE 74 u/l (38-126); ANION GAP 11 (6-22 (CALC)); BILIRUBIN, TOTAL 0.3 mg/dL (0.0-1.4); BUN 19 mg/dL (8-23); BUN/CREATININE RATIO 11 (12-20 (CALC)); CARBON DIOXIDE 22 mmol/l (22-30); CHLORIDE 108 mmol/l (95-108); CREATININE 1.7 mg/dL (0.5-1.0); GFR 29 ML/MIN (>=60 (CALC)); GFR FOR AFR.AMER. 36 ML/MIN (>=60 (CALC)); POTASSIUM 4.2 mmol/l (3.5-5.1); SGOT/AST 26 u/l (9-36); SODIUM 137 mmol/l (137-146); TOTAL PROTEIN 6.9 g/dL (6.3-8.2)
[2019-07-06 16:23] LABS: MYOGLOBIN 57 ng/mL (0 - 62)
[2019-07-06 18:15] VITALS: BP 141/70
[2019-07-06 23:40] VITALS: BP 121/74
[2019-07-07 04:28] VITALS: BP 126/62
[2019-07-07 07:26] VITALS: BP 114/63
[2019-07-07] MEDS ORDERED: OXYCODONE15 MG PO (10:20)
[2019-07-07] MEDS ORDERED: TRAZODONE100 MG PO (10:21)
[2019-07-07] MEDS ORDERED: AMMONIUM LACTATE12 % EX (10:23)
[2019-07-07] MEDS ORDERED: SERTRALINE100 MG PO (10:24)
[2019-07-07] MEDS ORDERED: NEURONTIN300 MG PO (10:26)
[2019-07-07] MEDS ORDERED: LEVOTHYROXIN75 MCG PO (10:27)
[2019-07-07] MEDS ORDERED: PROTONIX20 M1 PO (10:28)
[2019-07-07] MEDS ORDERED: INDERAL 20MG TA20 MG PO (10:28)
[2019-07-07] MEDS ORDERED: VENTOLIN HFA IN (10:29)
[2019-07-07 10:30] VITALS: BP 133/72
[2019-07-07] MEDS ORDERED: MYSOLINE250 M1 PO (10:31)
[2019-07-07] MEDS ORDERED: ATORVASTATIN CA40 MG PO (10:32)
[2019-07-07 10:41] LABS: HEMATOCRIT 31.9 % (37.0-47.0); MEAN CELL VOLUME 94.4 fL CALC (80.0-100.0); MEAN CORPUSCULAR HGB 29.6 pG CALC (26.0-32.0); MEAN CORPUSCULAR HGB CONC 31.3 g/dL CAL (32.0-36.0); RED BLOOD COUNT 3.38 mill/uL (4.20-5.60); RED CELL DISTRI WIDTH 14.4 % (11.5-15.5)
[2019-07-07 11:18] LABS: CREATININE 1.8 mg/dL (0.5-1.0); POTASSIUM 4.1 mmol/l (3.5-5.1)
[2019-07-07 15:09] VITALS: BP 129/66
[2019-07-07 19:21] VITALS: BP 144/73
[2019-07-07 23:15] VITALS: BP 147/83
[2019-07-08 03:49] VITALS: BP 151/72
[2019-07-08 07:43] VITALS: BP 128/63
[2019-07-08 08:31] LABS: HEMATOCRIT 34.6 % (37.0-47.0); HEMOGLOBIN 10.8 g/dl (12.0-16.0); IMMATURE GRANULOCYTES 0.5 % (0.0-5.0); MEAN CELL VOLUME 94.3 fL CALC (80.0-100.0); MEAN CORPUSCULAR HGB 29.4 pG CALC (26.0-32.0); MEAN CORPUSCULAR HGB CONC 31.2 g/dL CAL (32.0-36.0); NEUT# 3.36 thou/uL (2.00-7.15); RED BLOOD COUNT 3.67 mill/uL (4.20-5.60); RED CELL DISTRI WIDTH 14.3 % (11.5-15.5)
[2019-07-08 08:39] LABS: ALBUMIN 3.1 g/dL (3.2-5.0); BILIRUBIN, TOTAL 0.4 mg/dL (0.0-1.4); CREATININE 1.6 mg/dL (0.5-1.0); POTASSIUM 4.5 mmol/l (3.5-5.1)
[2019-07-08 09:08] LABS: TSH, 3RD GENERATION 0.36 uIU/mL (0.47 - 4.68)
[2019-07-08 10:30] VITALS: BP 112/58
[2019-07-08 15:15] VITALS: BP 110/64
[2019-07-08 18:45] VITALS: BP 133/74
[2019-07-08 23:55] VITALS: BP 114/68
[2019-07-09 03:50] VITALS: BP 105/65
[2019-07-09 07:07] VITALS: BP 96/60
[2019-07-09] MEDS ORDERED: ZITHROMAX250 MG PO (10:01)
[2019-07-09 10:43] VITALS: BP 100/65
[2019-07-09 15:30] VITALS: BP 115/47
[2019-07-09 19:25] VITALS: BP 113/55
[2019-07-09 23:13] VITALS: BP 167/81
[2019-07-10 11:18] VITALS: BP 110/52
[2019-07-10 14:32] VITALS: BP 123/58
[2019-07-10 18:50] VITALS: BP 152/71
[2019-07-11 00:23] VITALS: BP 126/66
[2019-07-11 04:08] VITALS: BP 155/84
[2019-07-11 05:27] LABS: HEMATOCRIT 38.8 % (37.0-47.0); HEMOGLOBIN 11.9 g/dl (12.0-16.0); IMMATURE GRANULOCYTES 0.2 % (0.0-5.0); MEAN CELL VOLUME 95.1 fL CALC (80.0-100.0); MEAN CORPUSCULAR HGB 29.2 pG CALC (26.0-32.0); MEAN CORPUSCULAR HGB CONC 30.7 g/dL CAL (32.0-36.0); NEUT# 1.79 thou/uL (2.00-7.15); RED BLOOD COUNT 4.08 mill/uL (4.20-5.60); RED CELL DISTRI WIDTH 14.4 % (11.5-15.5)
[2019-07-11 06:27] LABS: ALBUMIN 3.1 g/dL (3.2-5.0); BILIRUBIN, TOTAL 0.5 mg/dL (0.0-1.4); C-REACTIVE PROTEIN 2.1 mg/dL (0-0.9); CREATININE 1.5 mg/dL (0.5-1.0); POTASSIUM 4.7 mmol/l (3.5-5.1); TOTAL PROTEIN 6.2 g/dL (6.3-8.2)
[2019-07-11 08:50] VITALS: BP 158/70
[2019-07-11 10:36] VITALS: BP 151/63
== END 2019-07-11 13:37 | disposition home or self-care (01) | DRG 177 ==
LOC: ED 13:14 → ED-I 16:33 → ED 16:43 → ED-I 16:44 → MS2 16:44
PROVIDERS: Emergency Medicine; Internal Medicine; Nurse Practitioner Family; ADMIT Internal Medicine; ATTEND Internal Medicine
PROC: 0T9B70Z Drainage of Bladder with Drainage Device, Via Natural or Artificial Opening (ICD-10-PCS; principal; 2019-07-06)
DX: U07.1 COVID-19 (principal); J12.89 Other viral pneumonia; J44.0 Chronic obstructive pulmonary disease with (acute) lower respiratory infection; I10 Essential (primary) hypertension; I12.9 Hypertensive chronic kidney disease with stage 1 through stage 4 chronic kidney disease, or unspecified chronic kidney disease; N18.3 Chronic kidney disease, stage 3 (moderate); D63.1 Anemia in chronic kidney disease; K21.9 Gastro-esophageal reflux disease without esophagitis; M06.9 Rheumatoid arthritis, unspecified; E78.5 Hyperlipidemia, unspecified; G47.33 Obstructive sleep apnea (adult) (pediatric); E03.9 Hypothyroidism, unspecified; I73.9 Peripheral vascular disease, unspecified; G25.0 Essential tremor; Z86.73 Personal history of transient ischemic attack (TIA), and cerebral infarction without residual deficits
CPT/HCPCS: G0378; J0131; J1650

== ENCOUNTER 2019-07-11 21:52 | Emergency (ER) | payer MEDICARE ==
[~2019-07-11 21:52] MED LIST changes: +AMMONIUM LACTATE12 % EX; +ATORVASTATIN CA40 MG PO; +LEVOTHYROXIN75 MCG PO; +MYSOLINE250 M1 PO; +NEURONTIN300 MG PO; +PROTONIX20 M1 PO; +SERTRALINE100 MG PO; +TRAZODONE100 MG PO; +ZITHROMAX250 MG PO
[2019-07-12 01:20] LABS: IMMATURE GRANULOCYTES 0.2 % (0.0-5.0); MEAN CELL VOLUME 91.6 fL CALC (80.0-100.0); MEAN CORPUSCULAR HGB 28.7 pG CALC (26.0-32.0); MEAN CORPUSCULAR HGB CONC 31.3 g/dL CAL (32.0-36.0); NEUT# 3.09 thou/uL (2.00-7.15); RED BLOOD COUNT 3.45 mill/uL (4.20-5.60); URINE BILIRUBIN - DIPSTICK NEGATIVE (NEGATIVE); URINE BLOOD DIPSTICK NEGATIVE (NEGATIVE); URINE COLOR YELLOW; URINE GLUCOSE - DIPSTICK NEGATIVE (NEGATIVE); URINE KETONE NEGATIVE (NEGATIVE); URINE LEUK ESTERASE NEGATIVE (NEGATIVE); URINE NITRITE - DIPSTICK NEGATIVE (Negative); URINE PH 6.5 (4.5-8.0); URINE PROTEIN - DIPSTICK NEGATIVE (NEG-TRACE); URINE SPECIFIC GRAVITY 1.015; URINE UROBILINOGEN - DIPSTICK 0.2 E.U./dL (0.2)
[2019-07-12 01:28] LABS: HEMATOCRIT 31.6 % (37.0-47.0); HEMOGLOBIN 9.9 g/dl (12.0-16.0)
[2019-07-12 01:36] LABS: ALBUMIN 3.3 g/dL (3.2-5.0); ALKALINE PHOSPHATASE 53 u/l (38-126); ANION GAP 9 (6-22 (CALC)); BILIRUBIN, TOTAL 0.4 mg/dL (0.0-1.4); BUN 10 mg/dL (8-23); BUN/CREATININE RATIO 7 (12-20 (CALC)); CARBON DIOXIDE 24 mmol/l (22-30); CHLORIDE 106 mmol/l (95-108); CREATININE 1.4 mg/dL (0.5-1.0); GFR 37 ML/MIN (>=60 (CALC)); GFR FOR AFR.AMER. 44 ML/MIN (>=60 (CALC)); POTASSIUM 3.9 mmol/l (3.5-5.1); SGOT/AST 39 u/l (9-36); SODIUM 135 mmol/l (137-146); TOTAL PROTEIN 6.5 g/dL (6.3-8.2)
[2019-07-12 01:47] LABS: MYOGLOBIN 64 ng/mL (0 - 62)
[2019-07-12 09:01] VITALS: BP 177/83
== END 2019-07-12 08:44 | disposition home or self-care (01) ==
LOC: ED 21:52
PROVIDERS: Emergency Medicine
DX: R53.1 Weakness (principal); R53.83 Other fatigue; U07.1 COVID-19; I12.9 Hypertensive chronic kidney disease with stage 1 through stage 4 chronic kidney disease, or unspecified chronic kidney disease; N18.3 Chronic kidney disease, stage 3 (moderate); J44.9 Chronic obstructive pulmonary disease, unspecified; Z86.73 Personal history of transient ischemic attack (TIA), and cerebral infarction without residual deficits

== ENCOUNTER 2019-08-12 18:20 | Emergency (ER) | payer MEDICARE ==
[~2019-08-12] VITALS: Ht 154.9 cm; Wt 96.0 kg
[2019-08-12] MEDS ORDERED: TAM75CAP PO (22:20)
[2019-08-12 22:45] VITALS: BP 146/83
== END 2019-08-12 22:45 | disposition home or self-care (01) ==
LOC: ED 18:20
DX: U07.1 COVID-19 (principal); J10.1 Influenza due to other identified influenza virus with other respiratory manifestations; J44.9 Chronic obstructive pulmonary disease, unspecified; I12.9 Hypertensive chronic kidney disease with stage 1 through stage 4 chronic kidney disease, or unspecified chronic kidney disease; N18.3 Chronic kidney disease, stage 3 (moderate)

== ENCOUNTER 2019-10-17 11:54 | Emergency (ER) | payer MEDICARE ==
[~2019-10-17] VITALS: Ht 154.9 cm; Wt 95.4 kg
[2019-10-17 13:10] LABS: HEMATOCRIT 38.5 % (37.0-47.0); HEMOGLOBIN 11.6 g/dl (12.0-16.0); IMMATURE GRANULOCYTES 0.3 % (0.0-5.0); MEAN CELL VOLUME 93.4 fL CALC (80.0-100.0); MEAN CORPUSCULAR HGB 28.2 pG CALC (26.0-32.0); MEAN CORPUSCULAR HGB CONC 30.1 g/dL CAL (32.0-36.0); NEUT# 2.98 thou/uL (2.00-7.15); RED BLOOD COUNT 4.12 mill/uL (4.20-5.60); RED CELL DISTRI WIDTH 14.6 % (11.5-15.5)
[2019-10-17 13:48] LABS: BILIRUBIN, TOTAL 0.3 mg/dL (0.0-1.4); CREATININE 1.5 mg/dL (0.5-1.0); TOTAL PROTEIN 7.2 g/dL (6.3-8.2)
[2019-10-17 13:49] LABS: POTASSIUM 4.7 mmol/l (3.5-5.1)
[2019-10-17 14:05] VITALS: BP 141/65
== END 2019-10-17 14:11 | disposition home or self-care (01) ==
LOC: ED 11:54
DX: K59.00 Constipation, unspecified (principal); N20.0 Calculus of kidney; I12.9 Hypertensive chronic kidney disease with stage 1 through stage 4 chronic kidney disease, or unspecified chronic kidney disease; N18.3 Chronic kidney disease, stage 3 (moderate); J44.9 Chronic obstructive pulmonary disease, unspecified; Z86.73 Personal history of transient ischemic attack (TIA), and cerebral infarction without residual deficits; Z87.442 Personal history of urinary calculi

== ENCOUNTER 2020-02-15 16:19 | Emergency (ER) | payer MEDICARE ==
[~2020-02-15] VITALS: Ht 162.6 cm; Wt 100.0 kg
[2020-02-15 17:56] LABS: HEMATOCRIT 37.7 % (37.0-47.0); HEMOGLOBIN 11.6 g/dl (12.0-16.0); IMMATURE GRANULOCYTES 0.3 % (0.0-5.0); MEAN CORPUSCULAR HGB 29.2 pG CALC (26.0-32.0); MEAN CORPUSCULAR HGB CONC 30.8 g/dL CAL (32.0-36.0); NEUT# 3.37 thou/uL (2.00-7.15); RED BLOOD COUNT 3.97 mill/uL (4.20-5.60); RED CELL DISTRI WIDTH 13.4 % (11.5-15.5)
[2020-02-15 18:01] LABS: URINE BILIRUBIN - DIPSTICK NEGATIVE (NEGATIVE); URINE BLOOD DIPSTICK NEGATIVE (NEGATIVE); URINE COLOR YELLOW; URINE GLUCOSE - DIPSTICK NEGATIVE (NEGATIVE); URINE KETONE NEGATIVE (NEGATIVE); URINE LEUK ESTERASE TRACE (NEGATIVE); URINE NITRITE - DIPSTICK NEGATIVE (Negative); URINE PROTEIN - DIPSTICK NEGATIVE (NEG-TRACE); URINE SPECIFIC GRAVITY 1.015; URINE UROBILINOGEN - DIPSTICK 0.2 E.U./dL (0.2)
[2020-02-15 18:29] LABS: ALKALINE PHOSPHATASE 80 u/l (38-126); AMYLASE 140 u/l (30-110); ANION GAP 12 (6-22 (CALC)); BILIRUBIN, TOTAL 0.4 mg/dL (0.0-1.4); BUN 20 mg/dL (8-23); BUN/CREATININE RATIO 13 (12-20 (CALC)); CARBON DIOXIDE 27 mmol/l (22-30); CHLORIDE 104 mmol/l (95-108); CREATININE 1.6 mg/dL (0.5-1.0); ETHYL ALCOHOL 0 mg/dl (0-30); GFR 32 ML/MIN (>=60 (CALC)); GFR FOR AFR.AMER. 38 ML/MIN (>=60 (CALC)); LIPASE 78 u/l (23-300); MAGNESIUM 2.1 mg/dL (1.6-2.3); POTASSIUM 4.4 mmol/l (3.5-5.1); SODIUM 139 mmol/l (137-146); TOTAL PROTEIN 7.8 g/dL (6.3-8.2)
[2020-02-15 18:30] LABS: SGOT/AST 57 u/l (9-36)
[2020-02-15 18:31] LABS: ACT PARTIAL THROMBO TIME 24.1 SECONDS (20.0-32.5); PROTHROMBIN TIME 10.2 SECONDS (9.0-12.5)
[2020-02-15 20:50] VITALS: BP 168/72
== END 2020-02-15 20:50 | disposition home or self-care (01) ==
LOC: ED 16:19
DX: R53.1 Weakness (principal); I12.9 Hypertensive chronic kidney disease with stage 1 through stage 4 chronic kidney disease, or unspecified chronic kidney disease; N18.30 Chronic kidney disease, stage 3 unspecified; J44.9 Chronic obstructive pulmonary disease, unspecified; K21.9 Gastro-esophageal reflux disease without esophagitis; F41.9 Anxiety disorder, unspecified; M06.9 Rheumatoid arthritis, unspecified; E78.5 Hyperlipidemia, unspecified; Z91.81 History of falling; Z79.891 Long term (current) use of opiate analgesic; Z86.73 Personal history of transient ischemic attack (TIA), and cerebral infarction without residual deficits; Z20.828 Contact with and (suspected) exposure to other viral communicable diseases

== ENCOUNTER 2020-04-20 12:36 | Inpatient (IN) | payer MEDICARE ==
[~2020-04-20] VITALS: Ht 162.6 cm; Wt 97.0 kg
[2020-04-20 14:01] LABS: HEMATOCRIT 34.4 % (37.0-47.0); HEMOGLOBIN 10.4 g/dl (12.0-16.0); IMMATURE GRANULOCYTES 0.3 % (0.0-5.0); MEAN CELL VOLUME 95.6 fL CALC (80.0-100.0); MEAN CORPUSCULAR HGB 28.9 pG CALC (26.0-32.0); MEAN CORPUSCULAR HGB CONC 30.2 g/dL CAL (32.0-36.0); NEUT# 5.56 thou/uL (2.00-7.15); RED BLOOD COUNT 3.6 mill/uL (4.20-5.60); RED CELL DISTRI WIDTH 13.3 % (11.5-15.5)
[2020-04-20 15:15] LABS: URINE BILIRUBIN - DIPSTICK NEGATIVE (NEGATIVE); URINE BLOOD DIPSTICK NEGATIVE (NEGATIVE); URINE COLOR YELLOW; URINE GLUCOSE - DIPSTICK NEGATIVE (NEGATIVE); URINE KETONE NEGATIVE (NEGATIVE); URINE LEUK ESTERASE NEGATIVE (NEGATIVE); URINE NITRITE - DIPSTICK NEGATIVE (Negative); URINE PH 7.5 (4.5-8.0); URINE PROTEIN - DIPSTICK NEGATIVE (NEG-TRACE); URINE UROBILINOGEN - DIPSTICK 0.2 E.U./dL (0.2)
[2020-04-20 15:52] LABS: ALBUMIN 3.7 g/dL (3.2-5.0); BILIRUBIN, TOTAL 0.6 mg/dL (0.0-1.4); CREATININE 1.8 mg/dL (0.5-1.0); POTASSIUM 4.8 mmol/l (3.5-5.1); TOTAL PROTEIN 7.1 g/dL (6.3-8.2)
[2020-04-20] MEDS ORDERED: ASPIRIN81 MG PO (16:37)
[2020-04-20 21:38] VITALS: BP 144/69
[2020-04-21 00:07] VITALS: BP 113/60
[2020-04-21 04:50] VITALS: BP 164/85
[2020-04-21 05:16] LABS: HEMATOCRIT 32.7 % (37.0-47.0); HEMOGLOBIN 9.9 g/dl (12.0-16.0); IMMATURE GRANULOCYTES 0.3 % (0.0-5.0); MEAN CORPUSCULAR HGB 28.4 pG CALC (26.0-32.0); MEAN CORPUSCULAR HGB CONC 30.3 g/dL CAL (32.0-36.0); NEUT# 6.34 thou/uL (2.00-7.15); RED BLOOD COUNT 3.48 mill/uL (4.20-5.60); RED CELL DISTRI WIDTH 13.2 % (11.5-15.5)
[2020-04-21 05:52] LABS: ALBUMIN 3.4 g/dL (3.2-5.0); BILIRUBIN, TOTAL 0.8 mg/dL (0.0-1.4); CREATININE 1.5 mg/dL (0.5-1.0); POTASSIUM 4.4 mmol/l (3.5-5.1); TOTAL PROTEIN 6.7 g/dL (6.3-8.2)
[2020-04-21 07:28] VITALS: BP 157/73
[2020-04-21 11:00] VITALS: BP 160/82
[2020-04-21 14:45] VITALS: BP 165/76
[2020-04-21 16:14] VITALS: BP 156/81
[2020-04-21] MEDS ORDERED: LYRICA150 MG PO (18:31)
[2020-04-22] VITALS (7 sets, daily range): BP systolic 148–170; BP diastolic 79–89
[2020-04-22 05:19] LABS: HEMATOCRIT 32.1 % (37.0-47.0); HEMOGLOBIN 10.2 g/dl (12.0-16.0); MEAN CORPUSCULAR HGB 29.2 pG CALC (26.0-32.0); MEAN CORPUSCULAR HGB CONC 31.8 g/dL CAL (32.0-36.0); RED BLOOD COUNT 3.49 mill/uL (4.20-5.60)
[2020-04-22 06:05] LABS: CREATININE 1.4 mg/dL (0.5-1.0); MAGNESIUM 2.1 mg/dL (1.6-2.3); POTASSIUM 4.4 mmol/l (3.5-5.1)
[2020-04-23 04:00] VITALS: BP 179/91
[2020-04-23 05:38] VITALS: BP 154/80
[2020-04-23 06:10] LABS: HEMATOCRIT 34.2 % (37.0-47.0); HEMOGLOBIN 10.7 g/dl (12.0-16.0); IMMATURE GRANULOCYTES 0.4 % (0.0-5.0); MEAN CELL VOLUME 91.2 fL CALC (80.0-100.0); MEAN CORPUSCULAR HGB 28.5 pG CALC (26.0-32.0); MEAN CORPUSCULAR HGB CONC 31.3 g/dL CAL (32.0-36.0); NEUT# 7.92 thou/uL (2.00-7.15); RED BLOOD COUNT 3.75 mill/uL (4.20-5.60); RED CELL DISTRI WIDTH 12.9 % (11.5-15.5)
[2020-04-23 06:38] LABS: C-REACTIVE PROTEIN 6.2 mg/dL (0-0.9); CREATININE 1.5 mg/dL (0.5-1.0); POTASSIUM 4.9 mmol/l (3.5-5.1)
[2020-04-23 08:46] VITALS: BP 164/73
[2020-04-23 08:54] VITALS: BP 164/73
[2020-04-23] MEDS ORDERED: OXYCODONE5 M1 PO (11:34)
[2020-04-23] MEDS ORDERED: LYRICA150 M1 PO (11:47)
== END 2020-04-23 14:10 | disposition left against medical advice (07) | DRG 917 ==
LOC: ED 12:36 → ED-I 18:21 → ED 18:45 → MS2 19:41
PROVIDERS: Nurse Practitioner; ADMIT Internal Medicine; ATTEND Internal Medicine
PROC: 0T9B70Z Drainage of Bladder with Drainage Device, Via Natural or Artificial Opening (ICD-10-PCS; principal; 2020-04-20)
DX: T40.2X1A Poisoning by other opioids, accidental (unintentional), initial encounter (principal); G92 Toxic encephalopathy; N17.9 Acute kidney failure, unspecified; I12.9 Hypertensive chronic kidney disease with stage 1 through stage 4 chronic kidney disease, or unspecified chronic kidney disease; N18.30 Chronic kidney disease, stage 3 unspecified; J44.9 Chronic obstructive pulmonary disease, unspecified; M06.9 Rheumatoid arthritis, unspecified; E78.5 Hyperlipidemia, unspecified; K21.9 Gastro-esophageal reflux disease without esophagitis; G89.4 Chronic pain syndrome; G25.0 Essential tremor; E03.9 Hypothyroidism, unspecified; D63.1 Anemia in chronic kidney disease; I73.9 Peripheral vascular disease, unspecified; G47.33 Obstructive sleep apnea (adult) (pediatric); F41.9 Anxiety disorder, unspecified; Z91.81 History of falling; Z86.73 Personal history of transient ischemic attack (TIA), and cerebral infarction without residual deficits; Z96.643 Presence of artificial hip joint, bilateral; Z79.891 Long term (current) use of opiate analgesic; Z20.822 Contact with and (suspected) exposure to COVID-19
CPT/HCPCS: G0378; J1650; J2060

== ENCOUNTER 2021-03-29 09:10 | Inpatient (IN) | payer MEDICARE ==
[~2021-03-29] VITALS: Ht 162.6 cm; Wt 112.0 kg
[~2021-03-29 09:10] MED LIST changes: +ASPIRIN81 MG PO; +LYRICA150 M1 PO; +LYRICA150 MG PO; +OXYCODONE5 M1 PO
[2021-03-29 10:32] LABS: URINE BILIRUBIN - DIPSTICK NEGATIVE (NEGATIVE); URINE BLOOD DIPSTICK NEGATIVE (NEGATIVE); URINE COLOR YELLOW; URINE GLUCOSE - DIPSTICK NEGATIVE (NEGATIVE); URINE KETONE NEGATIVE (NEGATIVE); URINE LEUK ESTERASE NEGATIVE (NEGATIVE); URINE PROTEIN - DIPSTICK NEGATIVE (NEG-TRACE); URINE UROBILINOGEN - DIPSTICK 0.2 E.U./dL (0.2)
[2021-03-29 10:36] LABS: URINE NITRITE - DIPSTICK NEGATIVE (Negative)
[2021-03-29 10:48] LABS: ANION GAP 14 (6-22 (CALC)); BUN 18 mg/dL (8-23); BUN/CREATININE RATIO 10 (12-20 (CALC)); CARBON DIOXIDE 27 mmol/l (22-30); CHLORIDE 103 mmol/l (95-108); CREATININE 1.7 mg/dL (0.5-1.0); GFR 29 ML/MIN (>=60 (CALC)); GFR FOR AFR.AMER. 35 ML/MIN (>=60 (CALC)); POTASSIUM 4.6 mmol/l (3.5-5.1); SGOT/AST 26 u/l (9-36); SODIUM 140 mmol/l (137-146)
[2021-03-29 10:58] LABS: HEMOGLOBIN 12.2 g/dl (12.0-16.0); IMMATURE GRANULOCYTES 0.1 % (0.0-5.0); MEAN CELL VOLUME 96.4 fL CALC (80.0-100.0); MEAN CORPUSCULAR HGB CONC 30.1 g/dL CAL (32.0-36.0); NEUT# 5.09 thou/uL (2.00-7.15); RED BLOOD COUNT 4.2 mill/uL (4.20-5.60)
[2021-03-29 11:01] LABS: ALBUMIN 4.1 g/dL (3.2-5.0); ALKALINE PHOSPHATASE 105 u/l (38-126); BILIRUBIN, TOTAL 0.4 mg/dL (0.0-1.4); HEMATOCRIT 40.5 % (37.0-47.0); TOTAL PROTEIN 8.4 g/dL (6.3-8.2)
[2021-03-29 16:55] VITALS: BP 179/94
[2021-03-29] MEDS ORDERED: PRIMIDONE50 MG PO (17:31)
[2021-03-29] MEDS ORDERED: SERTRALINE50 MG PO (17:32)
[2021-03-29] MEDS ORDERED: OXYCODONE20 M1 PO (17:32)
[2021-03-29] MEDS ORDERED: MEMANTINE HYDRO10 MG (17:32)
[2021-03-29] MEDS ORDERED: GABAPENTIN100 MG PO (17:33)
[2021-03-29 18:20] VITALS: BP 151/78
[2021-03-29 20:00] VITALS: BP 145/83
[2021-03-30] VITALS (9 sets, daily range): BP systolic 124–210; BP diastolic 64–111
[2021-03-30 05:21] LABS: HEMATOCRIT 38.7 % (37.0-47.0); HEMOGLOBIN 11.8 g/dl (12.0-16.0); IMMATURE GRANULOCYTES 0.6 % (0.0-5.0); MEAN CELL VOLUME 96.3 fL CALC (80.0-100.0); MEAN CORPUSCULAR HGB 29.4 pG CALC (26.0-32.0); MEAN CORPUSCULAR HGB CONC 30.5 g/dL CAL (32.0-36.0); NEUT# 4.02 thou/uL (2.00-7.15); RED BLOOD COUNT 4.02 mill/uL (4.20-5.60); RED CELL DISTRI WIDTH 13.8 % (11.5-15.5)
[2021-03-30 05:41] LABS: ALBUMIN 3.8 g/dL (3.2-5.0); BILIRUBIN, TOTAL 0.4 mg/dL (0.0-1.4); C-REACTIVE PROTEIN 2.1 mg/dL (0-0.9); CREATININE 1.5 mg/dL (0.5-1.0); POTASSIUM 4.7 mmol/l (3.5-5.1); TOTAL PROTEIN 7.6 g/dL (6.3-8.2)
[2021-03-30] MEDS ORDERED: PRIMIDONE50 MG PO (07:52)
[2021-03-30] MEDS ORDERED: BREO ELLIPTA1 INH IN (07:53)
[2021-03-31 00:01] VITALS: BP 102/60
[2021-03-31 04:00] VITALS: BP 98/58
[2021-03-31 06:22] LABS: MAGNESIUM 2.3 mg/dL (1.6-2.3); POTASSIUM 4.6 mmol/l (3.5-5.1)
[2021-03-31 07:38] VITALS: BP 111/50
[2021-03-31 12:03] VITALS: BP 120/66
[2021-03-31 14:10] VITALS: BP 116/63
[2021-03-31 20:00] VITALS: BP 120/54
[2021-04-01] VITALS: BP 142/66
[2021-04-01 04:00] VITALS: BP 128/58
[2021-04-01 06:05] LABS: HEMATOCRIT 39.7 % (37.0-47.0); HEMOGLOBIN 11.9 g/dl (12.0-16.0); IMMATURE GRANULOCYTES 0.1 % (0.0-5.0); MEAN CORPUSCULAR HGB 29.4 pG CALC (26.0-32.0); NEUT# 3.75 thou/uL (2.00-7.15); RED BLOOD COUNT 4.05 mill/uL (4.20-5.60); RED CELL DISTRI WIDTH 14.1 % (11.5-15.5)
[2021-04-01 06:43] LABS: ALBUMIN 3.8 g/dL (3.2-5.0)
[2021-04-01 06:44] LABS: POTASSIUM 5.2 mmol/l (3.5-5.1)
[2021-04-01 08:50] VITALS: BP 125/59
[2021-04-01 11:19] VITALS: BP 108/51
[2021-04-01 16:16] VITALS: BP 114/56
[2021-04-01 19:00] VITALS: BP 104/52
[2021-04-02] VITALS (11 sets, daily range): BP systolic 104–153; BP diastolic 47–87
[2021-04-02 05:32] LABS: CREATININE 1.9 mg/dL (0.5-1.0); POTASSIUM 5.1 mmol/l (3.5-5.1)
[2021-04-03] VITALS (7 sets, daily range): BP systolic 109–157; BP diastolic 59–80
[2021-04-03 09:57] LABS: HEMATOCRIT 34.5 % (37.0-47.0); HEMOGLOBIN 10.3 g/dl (12.0-16.0); IMMATURE GRANULOCYTES 0.2 % (0.0-5.0); MEAN CELL VOLUME 99.7 fL CALC (80.0-100.0); MEAN CORPUSCULAR HGB 29.8 pG CALC (26.0-32.0); MEAN CORPUSCULAR HGB CONC 29.9 g/dL CAL (32.0-36.0); RED BLOOD COUNT 3.46 mill/uL (4.20-5.60)
[2021-04-03 10:44] LABS: CREATININE 1.5 mg/dL (0.5-1.0); POTASSIUM 4.5 mmol/l (3.5-5.1)
[2021-04-04] VITALS: BP 123/74
[2021-04-04 04:00] VITALS: BP 133/80
[2021-04-04 05:59] LABS: HEMATOCRIT 32.7 % (37.0-47.0); MEAN CELL VOLUME 96.7 fL CALC (80.0-100.0); MEAN CORPUSCULAR HGB 29.6 pG CALC (26.0-32.0); MEAN CORPUSCULAR HGB CONC 30.6 g/dL CAL (32.0-36.0); RED BLOOD COUNT 3.38 mill/uL (4.20-5.60); RED CELL DISTRI WIDTH 14.2 % (11.5-15.5)
[2021-04-04 06:03] LABS: CREATININE 1.6 mg/dL (0.5-1.0)
[2021-04-04 06:05] LABS: ALBUMIN 3.1 g/dL (3.2-5.0); CREATININE 1.6 mg/dL (0.5-1.0); POTASSIUM 4.4 mmol/l (3.5-5.1); POTASSIUM 4.5 mmol/l (3.5-5.1)
[2021-04-04 12:00] VITALS: BP 149/79
[2021-04-04] MEDS ORDERED: PERCOCET1 TA4 PO (12:40)
[2021-04-04] MEDS ORDERED: ZOFRAN4 MG/TAB PO (12:40)
[2021-04-05] MEDS ORDERED: VENTOLIN HFA IN (15:07)
[2021-04-05] MEDS ORDERED: TRAZODONE100 MG PO (15:07)
[2021-04-05] MEDS ORDERED: SERTRALINE50 MG PO (15:07)
[2021-04-05] MEDS ORDERED: LEVOTHYROXIN75 MCG PO (15:07)
[2021-04-05] MEDS ORDERED: ASPIRIN81 MG PO (15:07)
[2021-04-05] MEDS ORDERED: ATORVASTATIN CA40 MG PO (15:07)
[2021-04-05] MEDS ORDERED: PROTONIX20 M1 PO (15:07)
[2021-04-05] MEDS ORDERED: GABAPENTIN100 MG PO (15:07)
[2021-04-05] MEDS ORDERED: INDERAL 20MG TA20 MG PO (15:07)
[2021-04-05] MEDS ORDERED: PRIMIDONE50 MG PO (15:07)
== END 2021-04-04 13:53 | disposition home health service (06) | DRG 417 ==
LOC: ED 09:10 → ED-I 14:20 → ED 15:05 → ICU 15:06 → MS2 03-31 19:58
PROVIDERS: Emergency Medicine; Internal Medicine Nephrology; Nurse Practitioner; ADMIT Internal Medicine; ATTEND Internal Medicine
PROC: 0FT44ZZ Resection of Gallbladder, Percutaneous Endoscopic Approach (ICD-10-PCS; principal; 2021-04-02)
DX: K81.0 Acute cholecystitis (principal); N17.0 Acute kidney failure with tubular necrosis; E87.1 Hypo-osmolality and hyponatremia; E87.2 Acidosis; I12.9 Hypertensive chronic kidney disease with stage 1 through stage 4 chronic kidney disease, or unspecified chronic kidney disease; N18.30 Chronic kidney disease, stage 3 unspecified; D63.1 Anemia in chronic kidney disease; J44.9 Chronic obstructive pulmonary disease, unspecified; I95.9 Hypotension, unspecified; E86.9 Volume depletion, unspecified; K21.9 Gastro-esophageal reflux disease without esophagitis; F41.9 Anxiety disorder, unspecified; E78.5 Hyperlipidemia, unspecified; E03.9 Hypothyroidism, unspecified; M06.9 Rheumatoid arthritis, unspecified; G47.33 Obstructive sleep apnea (adult) (pediatric); G89.4 Chronic pain syndrome; G25.0 Essential tremor; I73.9 Peripheral vascular disease, unspecified; Z86.73 Personal history of transient ischemic attack (TIA), and cerebral infarction without residual deficits; Z87.442 Personal history of urinary calculi; Z85.51 Personal history of malignant neoplasm of bladder; Z85.528 Personal history of other malignant neoplasm of kidney; Z20.822 Contact with and (suspected) exposure to COVID-19
CPT/HCPCS: A9537; J0131; J1650

== ENCOUNTER 2021-12-01 21:53 | Inpatient (IN) | payer MEDICARE ==
[2021-12-01] VITALS (9 sets, daily range): BP systolic 88–105; BP diastolic 50–67
[~2021-12-01] VITALS: Ht 162.6 cm; Wt 105.0 kg
[~2021-12-01 21:53] MED LIST changes: +BREO ELLIPTA1 INH IN; +GABAPENTIN100 MG PO; +MEMANTINE HYDRO10 MG; +OXYCODONE20 M1 PO; +SERTRALINE50 MG PO; +ZOFRAN4 MG/TAB PO
--- NOTE | 2021-12-01 22:15 | NUR ---
ARRIVED VIA EMS, C/O FALL AFTER FEELING DIZZY. PT. STATES "I FELT LIKE MY HEAD WAS SWIMMING AND TRIPPED OVER MY WALKER, 2ND FALL IN LAST 2 WEEKS. TONIGHT I LAYED ON THE FLOOR FOR 1 HR PRIOR TO MY DAUGHTER COMING HOME. PT. DENIES LOC, DENIES HEAD, NECK OR BACK PAIN. DENIES INJURY. PT. ALERT AND OREITNED, STATES "I'VE FELT THAT WAY A FEW TIMES RECENTLY BUT NEVER ACTUALLY PASSED OUT, JUST FELT LIKE MY HEAD WAS SWIMMING".
[2021-12-01 22:55] LABS: HEMATOCRIT 35.7 % (37.0-47.0); IMMATURE GRANULOCYTES 0.4 % (0.0-5.0); MEAN CORPUSCULAR HGB 29.6 pG CALC (26.0-32.0); MEAN CORPUSCULAR HGB CONC 30.8 g/dL CAL (32.0-36.0); NEUT# 7.65 thou/uL (2.00-7.15); RED BLOOD COUNT 3.72 mill/uL (4.20-5.60); RED CELL DISTRI WIDTH 15.5 % (11.5-15.5)
[2021-12-01 23:19] LABS: ALBUMIN 3.4 g/dL (3.2-5.0); CREATININE 1.9 mg/dL (0.5-1.0); POTASSIUM 4.8 mmol/l (3.5-5.1); TOTAL PROTEIN 6.8 g/dL (6.3-8.2)
[2021-12-01 23:28] LABS: BILIRUBIN, TOTAL 0.2 mg/dL (0.0-1.4)
--- NOTE | 2021-12-01 23:41 | NUR ---
PURE WICK APPLIED TO LCS. TOLERATED WELL.
--- NOTE | 2021-12-01 23:45 | NUR ---
PT. ASKED IF SHE HAD LIST OF MEDS OR KNEW MEDICATIONS AND DOSAGE, PT. STATES "I DON'T KNOW THEM ALL". INSTRUCTED PT. TO HAVE FAMILY BRING MEDS TO HOSPITAL IN A.M. AND VERB UNDERSTANDING
[2021-12-02] VITALS (20 sets, daily range): BP systolic 97–132; BP diastolic 51–87
--- NOTE | 2021-12-02 00:15 | NUR ---
PT. DENIES C/O PAIN OR DISCOMFORT AT THIS TIME. VSS. DENIES HEADACHE OR DISZZINESS, C/P OR SOB
--- NOTE | 2021-12-02 01:15 | NUR ---
ASLEEP AT PRESENT. VSS. AWAITING BED ASSIGNMENT AT THIS TIME
[2021-12-02 02:06] LABS: URINE BILIRUBIN - DIPSTICK SMALL (NEGATIVE); URINE COLOR YELLOW; URINE GLUCOSE - DIPSTICK NEGATIVE (NEGATIVE); URINE KETONE NEGATIVE (NEGATIVE); URINE NITRITE - DIPSTICK NEGATIVE (Negative); URINE PROTEIN - DIPSTICK TRACE mg/dL (NEG-TRACE); URINE UROBILINOGEN - DIPSTICK 0.2 E.U./dL (0.2)
[2021-12-02 02:07] LABS: URINE BLOOD DIPSTICK NEGATIVE (NEGATIVE); URINE EPITHELIAL CELLS MODERATE EPI/hpf (0-FEW); URINE LEUK ESTERASE LARGE (NEGATIVE)
[2021-12-02 02:08] LABS: URINE BACTERIA MODERATE hpf; URINE YEAST MODERATE hpf
--- NOTE | 2021-12-02 02:15 | NUR ---
EXPLAINED TO PT. THAT SHE HAD UTI AND ASKED HER IF SHE HAD ANY SYMPTOMS, PT. VERB"JUST OCCASIONAL TWINGE OF PAIN THAT WENT ACROSS MY LOWER ABDOMEN A FEW DAYS AGO AND LESS URINE, BUT WHEN I DID GO IT WAS CLOUDY". EXPLAINED NEED FOR IV ABT AND VERB UNDERSTANDING. PT. STATES "I'M ALSO GONNA NEED THE OXYCODONE 20MG, MUSCLE RELAXER AND GABAPENTIN I HAVE AT NIGHT". PT. DOESN'T KNOW DOSE OF GABAPENTIN OR NAME AND DOSE OF MUSCLE RELAXER, AWARE, NO NEW ORDERS
--- NOTE | 2021-12-02 02:15 | NUR ---
NOTIFIED RE:PT. URINE RESULTS. ABT ORDERD. FOR UTI
--- NOTE | 2021-12-02 02:20 | NUR ---
ORTHOSTATIC VS OBTAINED WHEN PT. WENT FROM LYING TO SITTING PT. C/O"SWIMMING FEELING BACK IN MY HEAD". HOB AT 45 DEGREES AND PT. STATES "I FEEL BETTER". NICHOLAS SANCHEZ AWARE
--- NOTE | 2021-12-02 02:30 | NUR ---
REPORT CALLED TO SIMEON RE:ADMIT. PT. TRANSPORTED VIA STRETCHER TELE IN PLACE ROCEPHIN INFUSING VIA PU MP WITHOUT DIFF
--- NOTE | 2021-12-02 03:43 | NUR ---
PATIENT ADMITTED FROM ER VIA STRETCHER WITH ER STAFF IN ATTENDANCE. PATIENT TRANSFERRED FROM [facility] TO BED WITH ASSIST. PATIENT ADMITTED FOR SYNCOPE AND FALL AT HOME, UTI AND CHRONIC PAIN ISSUES. ALERT AND ORIENTEDX3. PATIENT WITH ROCEPHIN INFUSING VIA LEFT AC IV SITE ORDERED. SITE IS HEALTHY WITH GOOD BLOOD RETURN.TELE MONITOR IN PLACE. PUREWICK IN PLACE FOR URINE INCONT. O2 VIA NASAL CANNULA IN PLACE AT 2LPM. PATIENT STATES THAT SHE SOMETIMES GETS SOB. O2 SAT 98% AT THIS TIME. LUNGS ARE DIMINISHED BUT CLEAR. NO PERIPHERAL EDEMA NOTED. PULSES ARE PALPABLE. PATIENT WITH HX OF CHRONIC PAIN ISSUES-SEES DR. LINDA MCCORMICK PAIN MANAGEMENT IN [place]. TAKES OXYCONTIN 20MG QID, NEURONTIN 600MG PO QID-NO MED REC WAS DONE PER ED DEPT. CALL PLACED TO DR. MICHAEL AND NEW ORDER RECECIEVED FOR CURRENT PAIN MANAGEMENT MEDS. OXYCONTIN 20MG PO QID AND NEURONTIN 600MG PO QID ORDERED. PATIENT ORIENTED TO ROOM AND SURROUNDINGS. INSTRUCTED ON USE OF NURSE CALL LIGHT SYSTEM AND TV REMOTE. CALL LIGHT IN REACH. WILL CONT TO MONITOR.
--- NOTE | 2021-12-02 07:00 | NUR ---
RECEIVE REPORT FROM KALEB TURCIOS.
--- NOTE | 2021-12-02 08:00 | NUR ---
PATIENT ALERT AND ORIENTED X3. GOOD RESPIRATORY RATE AND VITAL SIGNS AT THIS TIME. PT IS EDUCATED ABOUD MEDICATIONS AND NURSING PLAN FOR TODAY. PT REFER UNDERSTAND. SAFETY AND FALL PRECAUTIONS IN PLACE. CALL LIGHT WITHIN REACH.
[2021-12-02] MEDS ORDERED: SERTRALINE HCL100 MG PO (10:59)
[2021-12-02] MEDS ORDERED: LIPITOR20 M1 PO (11:00)
[2021-12-02] MEDS ORDERED: TIZANIDINE HCL4 M1 PO (11:00)
[2021-12-02] MEDS ORDERED: OXYCODONE20 M1 PO (11:03)
[2021-12-02] MEDS ORDERED: LEVOTHYROXIN75 MC1 PO (11:05)
[2021-12-02] MEDS ORDERED: TIZANIDINE4 MG PO (11:07)
[2021-12-02] MEDS ORDERED: TEMAZEPAM15 MG PO (11:08)
[2021-12-02] MEDS ORDERED: GABAPENTIN100 MG PO (11:08)
[2021-12-02] MEDS ORDERED: OMEPRAZOLE DR40 MG PO (11:10)
[2021-12-02] MEDS ORDERED: HYDROXYZ HCL25 MG PO (11:11)
[2021-12-02] MEDS ORDERED: MYSOLINE50 M1 PO (11:12)
[2021-12-02 11:47] LABS: HEMATOCRIT 38.1 % (37.0-47.0); HEMOGLOBIN 11.7 g/dl (12.0-16.0); IMMATURE GRANULOCYTES 0.2 % (0.0-5.0); MEAN CELL VOLUME 95.5 fL CALC (80.0-100.0); MEAN CORPUSCULAR HGB 29.3 pG CALC (26.0-32.0); MEAN CORPUSCULAR HGB CONC 30.7 g/dL CAL (32.0-36.0); NEUT# 6.58 thou/uL (2.00-7.15); RED BLOOD COUNT 3.99 mill/uL (4.20-5.60); RED CELL DISTRI WIDTH 15.5 % (11.5-15.5)
--- NOTE | 2021-12-02 11:56 | NUR ---
PATIENT RESTING IN BED STABLE AT THIS TIME. DAUGHTER ALLY CALL FOR UPDATE.
[2021-12-02 12:35] LABS: CREATININE 1.7 mg/dL (0.5-1.0)
--- NOTE | 2021-12-02 16:00 | NUR ---
PATIENT RESTING IN BED STABLE AT THIS TIME.
--- NOTE | 2021-12-02 20:15 | NUR ---
PATIENT RESTING IN BED AT THIS TIME WITH O2 VIA NASAL CANNULA IN PLACE AT 2LPM. O2 SAT IS 94% AT THIS TIME. AWAKE ALERT AND ORIENTEDX3. PATIENT WITH PUREWICK IN PLACE. TELE MONITOR IN PLACE AND READING SR-92 AT THIS TIME. IVF NS PATENT AND INFUSING VIA LAC AT KVO RATE. C/O CHRONIC BACK AND LEG PAIN-MEDICATED WITH OXYCODONE 15MG PO PER EMAR. LUNGS ARE DIMINISHED. ABD IS SOFT WITH ACTIVE BS. CALL LIGHT IN REACH. SAFETY PRECAUTIONS REINFORCED. CALL LIGHT IN REACH. WILL CONT TO MONITOR.
--- NOTE | 2021-12-02 22:56 | NUR ---
RECEIVED CALL FROM FRANCI IN LAB WITH CRITICAL TROP-[id number]. DR. LEUNG CALLED AND NEW ORDER FOR REPEAT TROP IN 6 HOURS-ORDERED FOR 0430 AM. PATIENT IS CURRENTLY RESTING QUIETLY IN BED WITH NO COMPLAINTS OF PAIN. TELE MONITOR IN PLACE AND CURRENTLY READING SR-89. O2 VIA NASAL CANNULA IN PLACE AT 2LPM. PUREWICK IN PLACE FOR STRICT I&O. CALL LIGHT IN REACH. WILL CONT TO MONITOR.
[2021-12-03] VITALS: BP 136/73
--- NOTE | 2021-12-03 00:13 | NUR ---
PATIENT VS TAKEN AND RECORDED. PATIENT C/O CHRONIC PAIN-NO CHEST PAIN OR SOB. MEDICATED WITH ROXICODONE IR 15MG PO AND FLEXERIL 5MG PO FOR SPASMS. TELE MONITOR IN PLACE-CONT TO READ SR-80'S. IVF PATENT AND INFUSING VIA LAC SITE AT KVO RATE. CALL LIGHT IN REACH. WILL CONT TO MONITOR.
[2021-12-03 04:20] VITALS: BP 152/73
--- NOTE | 2021-12-03 05:00 | NUR ---
IV SITE TO LAC IS LEAKING AND DISLODGED WITH CATH INTACT. NEW IV SITE TO LEFT WRIST STARTED-#24 WITH GOOD BLOOD RETURN. IVF PATENT AND INFUSING AT KVO RATE. TELE MONITOR IN P[LACE. PUREWICK WITH THU URINE DRAINING MODERATE AMT. CALL LIGHT IN REACH. WILL CONT TO MONITOR.
[2021-12-03 05:02] LABS: HEMATOCRIT 38.9 % (37.0-47.0); HEMOGLOBIN 11.8 g/dl (12.0-16.0); IMMATURE GRANULOCYTES 0.2 % (0.0-5.0); MEAN CELL VOLUME 96.3 fL CALC (80.0-100.0); MEAN CORPUSCULAR HGB 29.2 pG CALC (26.0-32.0); MEAN CORPUSCULAR HGB CONC 30.3 g/dL CAL (32.0-36.0); NEUT# 6.74 thou/uL (2.00-7.15); RED BLOOD COUNT 4.04 mill/uL (4.20-5.60); RED CELL DISTRI WIDTH 15.6 % (11.5-15.5)
[2021-12-03 05:36] LABS: CREATININE 1.9 mg/dL (0.5-1.0); MAGNESIUM 2.3 mg/dL (1.6-2.3)
[2021-12-03 05:42] LABS: POTASSIUM 5.6 mmol/l (3.5-5.1)
--- NOTE | 2021-12-03 06:19 | NUR ---
ANDREW CALL FROM LAB WITH CRITICAL LAB RESULT-TROP 0.181 AND K+-5.6. RESULTS CALLED AND MESSAGE LEFT FOR DR. LEUNG. AWARE OF TREND GOING UP. WILL CONT TO MONITOR.
--- NOTE | 2021-12-03 07:00 | NUR ---
RECEIVE REPORT FROM KALEB TURCIOS.
--- NOTE | 2021-12-03 08:00 | NUR ---
PATIENT ALERT AND ORIENTED X3. GOOD RESPIRATORY RATE O2 94% NC 2L. PATIENT NOT REFER ANY PAIN OR DISCOMFORT. NOTIFY DR. MICHAEL TROPONIN ELEVATE. HE ORDENED EKG STAT. CONTINUE MONITORING PT. SAFETY AND FALL PRECAUTIONS IN PLACE FALL PRECAUTIONS WITHIN REACH.
[2021-12-03 08:29] VITALS: BP 124/80
--- NOTE | 2021-12-03 09:44 | NUR ---
CALLED DR TELLO OFFICE FOR CONSULTATION FOR ELEVATED TROPONIN.
[2021-12-03] MEDS ORDERED: INDERAL 20MG TA20 MG PO (11:26)
[2021-12-03] MEDS ORDERED: GABAPENTIN300 M2 PO (11:27)
[2021-12-03] MEDS ORDERED: HYDROCHLOROTH12.5 M1 PO (11:29)
--- NOTE | 2021-12-03 11:59 | NUR ---
PATIENT RESTING IN BED. STABLE AT THIS TIME. CT DONE.
[2021-12-03 19:31] VITALS: BP 111/62
--- NOTE | 2021-12-03 20:20 | NUR ---
RECEIVED BEDSIDE REPORT FROM BENJI SCOTT. PT SITTING ON BED HIGH FOWLERS: A&O X3. EVEN, NON- LABORED SHALLOW RESPIRATIONS. O2 @ 2L VIA NASAL CANNULA IN PLACE. TELEMETRY IN PLACE. IV SITE HEALTHY AND PATENT. PUREWICK IN PLACE WITH CLEAR, YELLOW URINE. SAFETY PRECAUTIONS IN PLACE WITH CALL LIGHT IN REACH.
[2021-12-04] VITALS (7 sets, daily range): BP systolic 114–132; BP diastolic 63–71
--- NOTE | 2021-12-04 | NUR ---
PT RESTING WITH EYES CLOSED. NO DISTRESS OR PAIN NOTED. PUREWICK IN PLACE: WITH CLEAR YELLOW URINE. NO NEEDS AT THIS TIME. SAFETY PRECAUTIONS IN PLACE WITH CALL LIGHT IN REACH.
[2021-12-04 03:48] LABS: ALBUMIN 3.2 g/dL (3.2-5.0); CREATININE 1.7 mg/dL (0.5-1.0); POTASSIUM 4.9 mmol/l (3.5-5.1); TOTAL PROTEIN 6.4 g/dL (6.3-8.2)
[2021-12-04 03:53] LABS: BILIRUBIN, TOTAL 0.3 mg/dL (0.0-1.4)
--- NOTE | 2021-12-04 04:10 | NUR ---
PT RESTING WITH EYES CLOSED. NO DISTRESS OR PAIN NOTED. IV SITE HEALTHY AND PATENT. O2 @ 2L VIA NASAL CANNULA IN PLACE. PUREWICK IN PLACE: CLEAR, YELLOW URINE. SAFETY PRECAUTIONS IN PLACE WITH CALL LIGHT IN REACH.
--- NOTE | 2021-12-04 05:42 | NUR ---
PT C/O PAIN ON LOWER EXTREMITIES AND LOWER BACK PAIN, LEVEL 8/10; ADMINISTERED PAIN MED PER EMAR. O2 @ 2L VIA NASAL CANNULA IN PLACE. SAFETY PRECAUTIONS IN PLACE WITH CALL LIGHT IN REACH.
--- NOTE | 2021-12-04 08:00 | NUR ---
Received patient in stable condition with no appparent distress.Patient resting comfortably at this time. Vitals stable on 2L nasal Cannula, no complaints of pain.
--- NOTE | 2021-12-04 12:00 | NUR ---
Patient had both Venous Duplex and Ct Chest complete this afternoon. Patient has been complaining of pain to BLE. Ordered pain medication provided along with emotional support and calming environemntal changes. Daughter at bedside at this time.
--- NOTE | 2021-12-04 16:00 | NUR ---
Patient resting in bed at this time. Per Dr. Bill, patient is to be transferred as soon as possible to [facility] to radiological findings from tests this afternoon. Dr. Bill at bedside explaining findings to patient.
--- NOTE | 2021-12-04 17:44 | NUR ---
CALLED [facility] AT [phone] SPOKE TO JAMEY AND WAS TOLD JOHN WILL CALL ME BACK TO SET UP TRANSFER ON THERE END AND FAX FACESHEET AND COVID RESULT TO [phone].
--- NOTE | 2021-12-04 18:00 | NUR ---
JOHN FROM TRANSFER CENTER CALLED BACK AND SPOKE TO HYDROPRESS OPERATOR AND WAS GIVEN INFORMATION REGARDING PT BEING TRANSFERRED TO THERE FACILITY FOR BILATERAL PE. GIVEN DR MICHAEL DIRECT NUMBER TO CALL AND STATED SHE WILL CALL BACK SHORTLY WITH A BED.
--- NOTE | 2021-12-04 20:00 | NUR ---
PT SITTING ON HIGH FOWLERS: A&O X3. FAMILY MEMBER AT BEDSIDE. EVEN AND UNLABORED RESPIRATIONS. 02 @ 2L VIA NASAL CANNULA IN PLACE. TELEMETRY IN PLACE. IV SITE FLUSHED: # 24 LEFT WRIST, HEALTHY AND PATENT. ACTIVE BOWEL SOUNDS X [address] QUAD[address] P[address]ICK IN PLACE WITH CLEAR, YELLOW URINE. PT WILL BE TRANSFER TO [facility], PT AWARE OF SAME. TRANSFER CONSENT OBTAINED, IRON MOLDER HELPER WITNESS. SAFETY PRECAUTIONS IN PLACE WITH CALL LIGHT IN REACH.
--- NOTE | 2021-12-04 21:12 | NUR ---
SPOKE WITH TRANSFER [facility] OF [facility]. THEY STATED THAT THERE WAS A DELAY IN GETTING AN ACCEPTING PHYSICIAN. THEY ARE CALLING BACK WITH A ROOM ASSIGNMENT TO FACILITATE TRANSFER. DR. JEROME IS ACCEPTING PHYSICIAN.
--- NOTE | 2021-12-04 21:35 | NUR ---
[facility] CALLED AND GAVE A BED ASSIGNMENT FOR THE PATIENT. ROOM 3351Z.
[2021-12-05] VITALS: BP 108/66
--- NOTE | 2021-12-05 00:17 | NUR ---
PT RESTING WITH EYES CLOSED. NO DISTRESS OR PAIN NOTED. PUREWICK IN PLACE WITH CLEAR, YELLOW URINE. NO NEEDS AT THE TIME. SAFETY PRECAUTIONS IN PLACE WITH CALL LIGHT IN REACH.
--- NOTE | 2021-12-05 02:04 | NUR ---
PT LEFT @ 0204 VIA STRETCHER WITH [facility] PERSONNEL. TELEMETRY BOX REMOVED, ER NOTIFIED OF SAME. Discharge instructions given. Patient verbalizes understanding of same. Discharged in stable condition via Stretcher to *Other with *Other. All belongings sent with pt. PT LEFT WITH IV # 24G LEFT WRIST SL.
== END 2021-12-05 02:04 | disposition short-term general hospital (02) | DRG 175 ==
LOC: ED 21:53 → ED-I 22:33 → ED 12-02 00:53 → MS2 12-02 00:54
PROVIDERS: Emergency Medicine; Nurse Practitioner; ADMIT Internal Medicine; ATTEND Internal Medicine
DX: I26.99 Other pulmonary embolism without acute cor pulmonale (principal); J96.01 Acute respiratory failure with hypoxia; I82.812 Embolism and thrombosis of superficial veins of left lower extremity; B37.49 Other urogenital candidiasis; R79.89 Other specified abnormal findings of blood chemistry; I12.9 Hypertensive chronic kidney disease with stage 1 through stage 4 chronic kidney disease, or unspecified chronic kidney disease; N18.30 Chronic kidney disease, stage 3 unspecified; I27.20 Pulmonary hypertension, unspecified; J44.9 Chronic obstructive pulmonary disease, unspecified; E87.5 Hyperkalemia; E78.5 Hyperlipidemia, unspecified; I73.9 Peripheral vascular disease, unspecified; D63.1 Anemia in chronic kidney disease; K21.9 Gastro-esophageal reflux disease without esophagitis; F41.9 Anxiety disorder, unspecified; G89.4 Chronic pain syndrome; M06.9 Rheumatoid arthritis, unspecified; E03.9 Hypothyroidism, unspecified; G25.0 Essential tremor; G47.33 Obstructive sleep apnea (adult) (pediatric); Z23 Encounter for immunization; Z86.73 Personal history of transient ischemic attack (TIA), and cerebral infarction without residual deficits; Z91.81 History of falling; Z79.891 Long term (current) use of opiate analgesic; Z87.442 Personal history of urinary calculi; Z20.822 Contact with and (suspected) exposure to COVID-19
CPT/HCPCS: J1650; Q9967

== ENCOUNTER 2023-03-08 16:58 | Emergency (ER) | payer MEDICARE ==
[2023-03-08] VITALS (14 sets, daily range): BP systolic 113–149; BP diastolic 56–94
[~2023-03-08] VITALS: Ht 162.6 cm; Wt 947.7 kg
[~2023-03-08 16:58] MED LIST changes: +ATORVASTATIN CA20 MG PO; +CYMBALTA30 MG PO; +ELIQUIS5 MG PO; +FAMOTIDINE20 M3 PO; +GABAPENTIN300 M2 PO; +HYDROCHLOROTH12.5 M1 PO; +HYDROXYZ HCL25 MG PO; +MEMANTINE HYDRO10 MG PO; +MYSOLINE50 M1 PO; +OMEPRAZOLE DR40 MG PO; +PREDNISONE10 MG PO; +PREDNISONE20 MG PO; +SERTRALINE HCL100 MG PO; +TIZANIDINE HCL4 M1 PO; +TIZANIDINE4 MG PO; +ZOLOFT100 MG PO
[2023-03-08 17:50] LABS: URINE BILIRUBIN - DIPSTICK Negative (NEGATIVE); URINE BLOOD DIPSTICK Negative (NEGATIVE); URINE GLUCOSE - DIPSTICK Negative (NEGATIVE); URINE KETONE Trace mg/dL (NEGATIVE); URINE LEUK ESTERASE Trace (NEGATIVE); URINE NITRITE - DIPSTICK Negative (Negative); URINE PH 6.5 (4.5-8.0); URINE PROTEIN - DIPSTICK Negative (NEG-TRACE); URINE UROBILINOGEN - DIPSTICK 0.2 E.U./dL (0.2)
[2023-03-08 17:51] LABS: URINE COLOR Yellow
[2023-03-08 18:44] LABS: BASO% 0.5 % (0-3); EOS% 1.2 % (0-8); HEMOGLOBIN 12.4 g/dl (12.0-16.0); IMMATURE GRANULOCYTES 0.1 % (0.0-5.0); LYMPH% 35.3 % (15-41); MEAN CELL VOLUME 93.7 fL CALC (80.0-100.0); MEAN CORPUSCULAR HGB 29.1 pG CALC (26.0-32.0); MEAN CORPUSCULAR HGB CONC 31.1 g/dL CAL (32.0-36.0); MONO% 5.9 % (2-13); NEUT# 4.43 thou/uL (2.00-7.15); RED BLOOD COUNT 4.26 mill/uL (4.20-5.60); RED CELL DISTRI WIDTH 13.4 % (11.5-15.5)
[2023-03-08 18:48] LABS: HEMATOCRIT 39.9 % (37.0-47.0)
[2023-03-08 19:15] LABS: ALKALINE PHOSPHATASE 96 u/l (38-126); BUN 20 mg/dL (8-23); BUN/CREATININE RATIO 11 (12-20 (CALC)); CHLORIDE 107 mmol/l (95-108); CREATININE 1.7 mg/dL (0.5-1.0); GFR FOR AFR.AMER. 35 ML/MIN (>=60 (CALC)); GFR OTHER RACES 29 ML/MIN (>=60 (CALC)); POTASSIUM 4.4 mmol/l (3.5-5.1); SODIUM 138 mmol/l (137-146); TOTAL PROTEIN 7.1 g/dL (6.3-8.2)
[2023-03-08 19:16] LABS: ANION GAP 11 (6-22 (CALC)); BILIRUBIN, TOTAL 0.5 mg/dL (0.02-1.3); CARBON DIOXIDE 24 mmol/l (22-30); SGOT/AST 37 u/l (9-36)
[2023-03-08] MEDS ORDERED: PREDNISONE20 MG PO (19:58)
== END 2023-03-08 20:33 | disposition home or self-care (01) ==
LOC: ED 16:58
PROVIDERS: Nurse Practitioner
DX: M25.562 Pain in left knee (principal); M25.561 Pain in right knee; M25.512 Pain in left shoulder; I10 Essential (primary) hypertension; E11.9 Type 2 diabetes mellitus without complications; J44.9 Chronic obstructive pulmonary disease, unspecified; K21.9 Gastro-esophageal reflux disease without esophagitis; F41.9 Anxiety disorder, unspecified; E78.5 Hyperlipidemia, unspecified; F32.A Depression, unspecified; Z79.891 Long term (current) use of opiate analgesic; Z86.73 Personal history of transient ischemic attack (TIA), and cerebral infarction without residual deficits; Z20.822 Contact with and (suspected) exposure to COVID-19

== ENCOUNTER 2023-08-15 22:26 | Emergency (ER) | payer MEDICARE, MEDICAID ==
[~2023-08-15] VITALS: Ht 158.8 cm; Wt 94.0 kg
[~2023-08-15 22:26] MED LIST changes: +AUGMENTIN500TAB PO; +LASIX 20 MG TAB20 MG PO; +NEXIUM40 M1 PO
[2023-08-15] MEDS ORDERED: ASPIRIN 81 MG/TAB PO ONE (22:40)
[2023-08-15] MEDS ORDERED: KETOROLAC TROMETHAMINE 30 MG/ML SDV IV ONE (22:40)
[2023-08-15] MEDS ORDERED: ACETAMINOPHEN 500 MG TAB PO ONE (22:40)
[2023-08-15] MEDS ORDERED: ASPIRIN 81 MG/TAB ONE (22:56)
[2023-08-15 22:58] LABS: BASO% 0.4 % (0-3); HEMATOCRIT 37.9 % (37.0-47.0); LYMPH% 41.6 % (15-41); MEAN CELL VOLUME 96.4 fL CALC (80.0-100.0); MEAN CORPUSCULAR HGB 30.5 pG CALC (26.0-32.0); MEAN CORPUSCULAR HGB CONC 31.7 g/dL CAL (32.0-36.0); MONO% 7.2 % (2-13); NEUT# 3.5 thou/uL (2.00-7.15); NEUT% 49.8 % (42-76); RED BLOOD COUNT 3.93 mill/uL (4.20-5.60); RED CELL DISTRI WIDTH 13.7 % (11.5-15.5)
[2023-08-15 23:01] VITALS: BP 129/68
[2023-08-15 23:19] LABS: ACT PARTIAL THROMBO TIME 24.1 SECONDS (20.0-32.5); INTERNATIONAL NORMALIZED RATIO 1.1 RATIO (0.7-1.3)
[2023-08-15 23:23] LABS: ALBUMIN 4.1 g/dL (3.2-5.0); ANION GAP 7 (6-22 (CALC)); BILIRUBIN, TOTAL 0.5 mg/dL (0.02-1.3); BUN 27 mg/dL (8-23); BUN/CREATININE RATIO 16 (12-20 (CALC)); CARBON DIOXIDE 25 mmol/l (22-30); CHLORIDE 110 mmol/l (95-108); CREATININE 1.6 mg/dL (0.5-1.0); ESTIMATED GFR 33 ML/MIN (>=90 (CALC)); POTASSIUM 4.3 mmol/l (3.5-5.1); SGOT/AST 58 u/l (9-36); SODIUM 138 mmol/l (137-146); TOTAL PROTEIN 7.8 g/dL (6.3-8.2)
[2023-08-15 23:24] LABS: ALKALINE PHOSPHATASE 110 u/l (38-126); PROTHROMBIN TIME 10.3 SECONDS (9.0-12.5)
[2023-08-15 23:30] VITALS: BP 144/67
[2023-08-15 23:56] LABS: TSH, 3RD GENERATION 1.83 uIU/mL (0.47 - 4.68)
[2023-08-16 00:01] VITALS: BP 143/62
[2023-08-16] MEDS ORDERED: VOLTAREN - GENE75 MG PO (00:12)
[2023-08-16 00:31] VITALS: BP 121/49
[2023-08-16 00:50] VITALS: BP 121/49
== END 2023-08-16 00:50 | disposition home or self-care (01) ==
LOC: ED 22:26
PROVIDERS: Family Medicine
DX: R07.89 Other chest pain (principal); I10 Essential (primary) hypertension; E11.9 Type 2 diabetes mellitus without complications; J44.9 Chronic obstructive pulmonary disease, unspecified; K21.9 Gastro-esophageal reflux disease without esophagitis; E78.5 Hyperlipidemia, unspecified; F41.9 Anxiety disorder, unspecified; F32.A Depression, unspecified; Z86.73 Personal history of transient ischemic attack (TIA), and cerebral infarction without residual deficits; Z86.711 Personal history of pulmonary embolism; Z79.01 Long term (current) use of anticoagulants

== ENCOUNTER 2023-11-13 19:47 | Inpatient (IN) | payer MEDICARE ==
[~2023-11-13] VITALS: Ht 162.6 cm; Wt 106.0 kg
[~2023-11-13 19:47] MED LIST changes: +VOLTAREN - GENE75 MG PO
--- NOTE | 2023-11-13 19:50 | NUR ---
PATIENT TO ROOM 10 VIA WHEELCHAIR. PATIENT UNABLE TO GET IN BED UNASSISTED.
--- NOTE | 2023-11-13 20:00 | NUR ---
STROKE ALERT CALLED.
[2023-11-13 20:27] LABS: BASO% 0.6 % (0-3); HEMATOCRIT 37.8 % (37.0-47.0); HEMOGLOBIN 11.8 g/dl (12.0-16.0); IMMATURE GRANULOCYTES 0.3 % (0.0-5.0); LYMPH% 46.4 % (15-41); MEAN CELL VOLUME 95.2 fL CALC (80.0-100.0); MEAN CORPUSCULAR HGB 29.7 pG CALC (26.0-32.0); MEAN CORPUSCULAR HGB CONC 31.2 g/dL CAL (32.0-36.0); MONO% 8.7 % (2-13); NEUT# 3.06 thou/uL (2.00-7.15); RED BLOOD COUNT 3.97 mill/uL (4.20-5.60); RED CELL DISTRI WIDTH 13.4 % (11.5-15.5)
[2023-11-13 20:39] LABS: ALKALINE PHOSPHATASE 65 u/l (38-126); ANION GAP 8 (6-22 (CALC)); BILIRUBIN, TOTAL 0.6 mg/dL (0.02-1.3); BUN 33 mg/dL (8-23); BUN/CREATININE RATIO 16 (12-20 (CALC)); CARBON DIOXIDE 24 mmol/l (22-30); CHLORIDE 111 mmol/l (95-108); ESTIMATED GFR 25 ML/MIN (>=90 (CALC)); POTASSIUM 4.9 mmol/l (3.5-5.1); SGOT/AST 34 u/l (9-36); SODIUM 137 mmol/l (137-146); TOTAL PROTEIN 7.3 g/dL (6.3-8.2)
--- NOTE | 2023-11-13 20:40 | NUR ---
CALL TO TELENEUROLGY REGARIDNG CALL BACK FOR DOCTOR TO DOCTOR REPORT.
[2023-11-13 20:45] LABS: ACT PARTIAL THROMBO TIME 24.5 SECONDS (20.0-32.5); INTERNATIONAL NORMALIZED RATIO 1.1 RATIO (0.7-1.3)
[2023-11-13 20:50] LABS: PROTHROMBIN TIME 10.6 SECONDS (9.0-12.5)
[2023-11-13 21:18] VITALS: BP 116/68
--- NOTE | 2023-11-13 21:30 | NUR ---
PATIENT GETS UP TO BEDSIDE COMMODE WITH MINIMAL ASSISTANCE. PATIENT IS CALM, SPEECH CLEAR, A+OX3. DAUGHTERS AT BEDSIDE. PATIENT REPORTS PAIN ON LEFT SIDE OF BODY. RESPIRATIONS ARE EVEN AND UNLABORED. CALL LIGHT IN REACH. WILL CONTINUE TO MONITOR.
[2023-11-13 21:56] LABS: URINE BILIRUBIN - DIPSTICK Negative (NEGATIVE); URINE BLOOD DIPSTICK Negative (NEGATIVE); URINE GLUCOSE - DIPSTICK Negative (NEGATIVE); URINE KETONE Negative (NEGATIVE); URINE NITRITE - DIPSTICK Negative (Negative); URINE PH 5.5 (4.5-8.0); URINE PROTEIN - DIPSTICK Negative (NEG-TRACE); URINE SPECIFIC GRAVITY 1.015; URINE UROBILINOGEN - DIPSTICK 0.2 E.U./dL (0.2)
[2023-11-13 21:57] LABS: URINE COLOR Yellow; URINE LEUK ESTERASE Moderate (NEGATIVE); URINE SQUAMOUS EPITHELIAL CELL FEW EPI/hpf (0-FEW)
[2023-11-13] MEDS ORDERED: DONEPEZIL HCL10 M1 PO (22:42)
[2023-11-13] MEDS ORDERED: DEXTROSE 250 ML IV PRN (22:45)
[2023-11-13] MEDS ORDERED: AMLODIPINE BESY10 MG PO (22:48)
[2023-11-13] MEDS ORDERED: LISINOPRIL10 MG PO (22:49)
[2023-11-13] MEDS ORDERED: TIZANIDINE2 MG PO (22:52)
[2023-11-13] MEDS ORDERED: APIXABAN BASE 5 MG TAB PO SCH (22:58)
[2023-11-13] MEDS ORDERED: PROPRANOLOL HCL 20 MG/TAB PO SCH (22:59)
[2023-11-13 23:00] VITALS: BP 124/70
--- NOTE | 2023-11-13 23:30 | NUR ---
PATIENT ARRIVED FROM THE ER VIA STRETCHER BROUGHT BY KAROLINA TURCIOS. BEDSIDE HANDOFF AND NIHSS COMPLETED. PATIENT ASSISTED TO THE RESTROOM.
--- NOTE | 2023-11-13 23:30 | NUR ---
PATIENT ARRIVED TO ICU ROOM 4 FROM ED VIA STRETCHER.
[2023-11-13 23:36] VITALS: BP 138/70
[2023-11-14] VITALS (20 sets, daily range): BP systolic 90–149; BP diastolic 46–87
--- NOTE | 2023-11-14 00:01 | NUR ---
PATIENT TRANSFERED TO ICU BY RN.
[2023-11-14] MEDS ORDERED: HYDROcodone/Acetaminophen 1 COMBO TAB PO PRN (00:20)
[2023-11-14] MEDS ORDERED: TEMAZEPAM 15 MG/CAP PO SCH ×2 (00:33→21:00)
--- NOTE | 2023-11-14 01:00 | NUR ---
SPOKE WITH PATIENT'S DAUGHTER AND PROVIDED AN UPDATE, ALSO CONFIRMED CONTACT INFO ON FACESHEET WAS CORRECT.
[2023-11-14] MEDS ORDERED: VENTOLIN HFA108 MCG (01:57)
[2023-11-14] MEDS ORDERED: ARICEPT PO (01:58)
[2023-11-14] MEDS ORDERED: BREO ELLIPTA1 INH (01:58)
--- NOTE | 2023-11-14 04:00 | NUR ---
ASSISTED PATIENT TO BEDSIDE COMMODE. PATIENT REPORTED FEELING SLIGHTLY DIZZY AND STATED SHE OFTEN FEELS DIZZY AT HOME AND HAD FALLS IN THE PAST BUT NO FALLS IN RECENT MONTHS. PATIENT REMAINED STEADY ON HER FEET BUT REQUIRED HOLDING ONTO THE BED RAIL TO TRANSFER SAFELY INTO A SEATED POSITION ON THE SIDE OF THE BED.
[2023-11-14] MEDS ORDERED: LEVOTHYROXINE SODIUM 75 MCG/TAB PO SCH (06:00)
--- NOTE | 2023-11-14 06:10 | NUR ---
PATIENT RESTING IN BED LISTENING TO MUSIC. ALL NEEDS MET AT THIS TIME.
--- NOTE | 2023-11-14 07:30 | NUR ---
Report received from fire department marine engineer nurse. Per nurse, no events overnight. Patient is sleeping, does not appear to be in any distress. On room air, VS WNL, NSR on tele monitor. All needs addressed, call light within reach.
[2023-11-14] MEDS ORDERED: GABAPENTIN 300 MG/CAP PO SCH (08:00)
[2023-11-14] MEDS ORDERED: amLODIPine BESYLATE 5 MG/TAB PO SCH (09:00)
[2023-11-14] MEDS ORDERED: PANTOPRAZOLE SODIUM Sesquihydr 40 MG/TAB PO SCH (09:00)
[2023-11-14 09:30] LABS: CHOLESTEROL HDL RATIO 3.8 (<4.4 (CALC))
--- NOTE | 2023-11-14 12:00 | NUR ---
Patient is resting in bed, denies any pain. Patient is A&Ox4, on room air, VS WNL, NSR on tele monitor. Plan for patient to go to MRI today, waiting on MD to put orders in for anti-anxiety meds for MRI. All needs addressed, call light within reach.
[2023-11-14] MEDS ORDERED: LORazepam 2 MG/ML IV PRN (12:55)
--- NOTE | 2023-11-14 14:30 | NUR ---
Patient went to MRI, tolerated without issue.
--- NOTE | 2023-11-14 16:00 | NUR ---
Patient is resting in bed, denies any pain. Family at bedside. Patient is A&Ox4, on room air, VS WNL, NSR on tele monitor. All needs addressed, call light within reach.
--- NOTE | 2023-11-14 20:00 | NUR ---
PATIENT RESTING IN BED. CALL LIGHT AND PERSONAL BELONGINGS WITHIN REACH.
[2023-11-14] MEDS ORDERED: ATORVASTATIN CALCIUM 20 MG/TAB PO SCH (21:00)
--- NOTE | 2023-11-14 22:00 | NUR ---
PATIENT AWAKE AND ALERT IN BED. ASSISTED PATIENT TO BEDSIDE COMMODE. PATIENT PROVIDED WITH HEAT PACKS FOR HER LOWER BACK PAIN BILATERALLY. PATIENT STATES ALL OTHER NEEDS MET AT THIS TIME.
--- NOTE | 2023-11-15 | NUR ---
PATIENT RESTING IN BED. BED LOCKED IN LOWEST POSITION WITH ALARM SET.
[2023-11-15 00:01] VITALS: BP 106/52
--- NOTE | 2023-11-15 04:00 | NUR ---
PATIENT RESTING IN BED. CALL LIGHT AND PERSONAL ITEMS WITHIN REACH.
--- NOTE | 2023-11-15 07:25 | NUR ---
Report received fron night manager nurse. Per nurse, no events overnight. Patient is sleeping, does not appear to be in any distress. On room air, VS WNL, NSR on tele monitor. Plan for patient to have echo done today. All needs addressed, call light within reach.
[2023-11-15 07:59] VITALS: BP 120/64
[2023-11-15 08:02] LABS: BASO% 0.4 % (0-3); EOS% 1.4 % (0-8); HEMATOCRIT 39.4 % (37.0-47.0); HEMOGLOBIN 12.5 g/dl (12.0-16.0); IMMATURE GRANULOCYTES 0.1 % (0.0-5.0); LYMPH% 50.5 % (15-41); MEAN CELL VOLUME 94.7 fL CALC (80.0-100.0); MEAN CORPUSCULAR HGB CONC 31.7 g/dL CAL (32.0-36.0); MONO% 8.8 % (2-13); NEUT# 3.01 thou/uL (2.00-7.15); NEUT% 38.8 % (42-76); RED BLOOD COUNT 4.16 mill/uL (4.20-5.60); RED CELL DISTRI WIDTH 13.4 % (11.5-15.5)
[2023-11-15 08:06] LABS: ALBUMIN 3.7 g/dL (3.2-5.0); BILIRUBIN, TOTAL 0.4 mg/dL (0.02-1.3); CREATININE 1.8 mg/dL (0.5-1.0); MAGNESIUM 2.2 mg/dL (1.6-2.3); POTASSIUM 4.4 mmol/l (3.5-5.1); TOTAL PROTEIN 6.7 g/dL (6.3-8.2)
[2023-11-15] MEDS ORDERED: INFLUENZA VIRUS VACCINE FLUZONE HD 2024/25 0.5 ML INJ IM SCH (09:00)
--- NOTE | 2023-11-15 12:00 | NUR ---
Patient is resting in bed, denies any pain. Echo being done at bedside. Patient is A&Ox4, on room air, VS WNL, NSR on tele monitor. All needs addressed, call light within reach.
[2023-11-15 12:45] VITALS: BP 140/62
[2023-11-15 15:19] VITALS: BP 98/46
--- NOTE | 2023-11-15 16:00 | NUR ---
Patient is sitting in bed, denies any pain. Daughter at bedside. Patient is A&Ox4, on room air, VS WNL, NSR on tele monitor. All needs addressed, call light within reach. Plan for patient to go to rehab possibly tomorrow.
--- NOTE | 2023-11-15 20:00 | NUR ---
pt assessment complete. nih of 0 given. pt is a+o x4. pt complained of slight neck and generalized pain. pt answers questions approp, obeys all commands. no deficits noted. pt educated on cva/tia, and symptoms. pt is alert, watching tv. v/s stable. call light in reach
[2023-11-15 20:25] VITALS: BP 118/65
--- NOTE | 2023-11-15 22:00 | NUR ---
PT ALERT, WATCHNG TV. PT HAS NO COMPLAINTS. SNACKS PROVIDED. V/S STABLE. CALL LIGHT IN REACH
--- NOTE | 2023-11-16 | NUR ---
PT ASSISTED TO BSC. PT HAS NO COMPLAINTS. V/S STABLE, CALL LIGHT IN REACH
[2023-11-16 01:24] VITALS: BP 96/47
--- NOTE | 2023-11-16 02:40 | NUR ---
PT RESITNG COMFORTABLY. NO CHANGES NOTED. PT HAS NO COMPLAINTS AT THIS TIME. V/S STABLE, CALL LIGHT IN REACH
[2023-11-16 05:22] LABS: BASO% 0.5 % (0-3); EOS% 1.5 % (0-8); HEMATOCRIT 38.1 % (37.0-47.0); HEMOGLOBIN 11.9 g/dl (12.0-16.0); IMMATURE GRANULOCYTES 0.3 % (0.0-5.0); MEAN CELL VOLUME 96.2 fL CALC (80.0-100.0); MEAN CORPUSCULAR HGB 30.1 pG CALC (26.0-32.0); MEAN CORPUSCULAR HGB CONC 31.2 g/dL CAL (32.0-36.0); MONO% 9.2 % (2-13); NEUT# 3.33 thou/uL (2.00-7.15); NEUT% 42.5 % (42-76); RED BLOOD COUNT 3.96 mill/uL (4.20-5.60); RED CELL DISTRI WIDTH 13.4 % (11.5-15.5)
--- NOTE | 2023-11-16 05:26 | NUR ---
PT RESTING. STILL IN SOME DISCOMFORT, 4/10 PAIN LEVEL, GENERALIZED. PT PROVIDED W/ FLUIDS. DRESSING REPLACED ON IV SITE. PT AWARE OF DISCHARGE INFO TO [facility]. NO QUESTIONS AT THIS TIME. V/S STABLE. CALL LIGHT IN REACH
[2023-11-16 05:39] LABS: ALBUMIN 3.7 g/dL (3.2-5.0); BILIRUBIN, TOTAL 0.4 mg/dL (0.02-1.3); CREATININE 1.8 mg/dL (0.5-1.0); MAGNESIUM 2.2 mg/dL (1.6-2.3); POTASSIUM 4.7 mmol/l (3.5-5.1); TOTAL PROTEIN 6.7 g/dL (6.3-8.2)
--- NOTE | 2023-11-16 07:15 | NUR ---
Report received from slot shift supervisor nurse. Per nurse, no events overnight. Patient is resting in bed, denies any pain. States that she was unable to sleep much. A&Ox4, on room air, VS WNL, NSR on tele monitor. All needs addressed, call light within reach.
[2023-11-16 07:35] VITALS: BP 131/65
[2023-11-16] MEDS ORDERED: Polyethylene Glycol 3350 17 GM/PKT PO SCH (08:30)
--- NOTE | 2023-11-16 12:00 | NUR ---
Patient is sitting in bed eating lunch. A&Ox4, on room air, NSR on tele monitor, VS WNL. All needs addressed, call light within reach.
[2023-11-16 12:46] VITALS: BP 119/38
[2023-11-16] MEDS ORDERED: ALBUTEROL SULFATE 8 GM INH IN PRN (13:35)
--- NOTE | 2023-11-16 13:35 | NUR ---
Patient is asking for inhalers that she takes at home. Dr Patrick notified and will order them.
[2023-11-16] MEDS ORDERED: FLUTICASONE/SALMETEROL 250 MCG/50 MCG PER DOSE INH IN SCH (14:00)
--- NOTE | 2023-11-16 16:00 | NUR ---
Patient is resting in bed, denies any pain. A&Ox4, on room air, VS WNL, NSR on tele monitor. Discharge pushed back until tomorrow. Patient aware. All needs addressed, call light within reach.
[2023-11-16 16:43] VITALS: BP 109/48
--- NOTE | 2023-11-16 20:00 | NUR ---
ASSESSMENT COMPLETE. NO CHANGE IN BASELINE. PT AWAKE, WATCHING TV, NO COMPLAINTS. PT ASSISTED TO BSC, NO BM YET. V/S STABLE. CALL LIGHT IN REACH
[2023-11-16] MEDS ORDERED: GABAPENTIN 300 MG/CAP PO SCH (21:00)
--- NOTE | 2023-11-17 | NUR ---
PT RESTING, HAS SOME MILD GENERALIZED PAIN. PT PROVIDED W/ SNACKS AND FLUIDS. STILL NO BM. V/S STABLE. CALL LIGHT IN REACH
[2023-11-17 03:23] VITALS: BP 134/74
--- NOTE | 2023-11-17 04:07 | NUR ---
PT GIVEN LORTAB AND ALBUTEROL INHALER PER MD ORDERS. PT ASSISTED TO BSC. V/S STABLE. CALL LIGHT IN REACH
--- NOTE | 2023-11-17 07:25 | NUR ---
Report received from steward/stewardess night nurse. Per nurse, no events overnight. Patient is sleeping, does not appear to be in any distress. Patient is on room air, NSR on tele monitor, VS WNL. All needs addressed, call light within reach. Plan to discharge today.
[2023-11-17 08:07] VITALS: BP 111/54
[2023-11-17] MEDS ORDERED: TIOTROPIUM BROMIDE MONOHYDRATE 2.5 MCG/ACT 4 GM INH IN SCH (09:00)
[2023-11-17] MEDS ORDERED: DEXTROMETHORPHAN-Guaifenesin 20-200 MG/10 ML UDC PO PRN (09:15)
[2023-11-17] MEDS ORDERED: Polyethylene Glycol 3350 17 GM/PKT PO SCH (10:00)
[2023-11-17] MEDS ORDERED: LACTULOSE 20 GM/30 ML UDC PO SCH (10:00)
[2023-11-17 12:45] VITALS: BP 127/58
--- NOTE | 2023-11-17 13:35 | NUR ---
Discharge instructions given. Patient verbalizes understanding of discharge instructions. Discharged in stable condition. Patient left unit via Wheelchair with staff to [facility] and rehab. IV removed. All belongings sent with pt.
== END 2023-11-17 13:35 | DRG 57 ==
LOC: ED 19:47 → ED-I 20:24 → ED 20:24 → ED-I 21:21 → ED 21:55 → ICU 21:56
PROVIDERS: Emergency Medicine; Psychiatry & Neurology Neurology; Student in an Organized Health Care Education/Training Program; ADMIT Internal Medicine; ATTEND Internal Medicine
DX: I69.328 Other speech and language deficits following cerebral infarction (principal); Z68.41 Body mass index [BMI] 40.0-44.9, adult; N17.9 Acute kidney failure, unspecified; I69.354 Hemiplegia and hemiparesis following cerebral infarction affecting left non-dominant side; I69.392 Facial weakness following cerebral infarction; I13.10 Hypertensive heart and chronic kidney disease without heart failure, with stage 1 through stage 4 chronic kidney disease, or unspecified chronic kidney disease; E11.22 Type 2 diabetes mellitus with diabetic chronic kidney disease; N18.32 Chronic kidney disease, stage 3b; D63.1 Anemia in chronic kidney disease; E11.51 Type 2 diabetes mellitus with diabetic peripheral angiopathy without gangrene; E03.9 Hypothyroidism, unspecified; M54.16 Radiculopathy, lumbar region; J43.1 Panlobular emphysema; G30.0 Alzheimer's disease with early onset; F02.A0 Dementia in other diseases classified elsewhere, mild, without behavioral disturbance, psychotic disturbance, mood disturbance, and anxiety; E66.9 Obesity, unspecified; G47.00 Insomnia, unspecified; G47.33 Obstructive sleep apnea (adult) (pediatric); K21.9 Gastro-esophageal reflux disease without esophagitis; F41.9 Anxiety disorder, unspecified; E78.5 Hyperlipidemia, unspecified; Z86.711 Personal history of pulmonary embolism; Z79.01 Long term (current) use of anticoagulants; Z87.442 Personal history of urinary calculi
CPT/HCPCS: 90662; J2060